=== PATIENT | male | born 1995 | race Caucasian/White ===

== ENCOUNTER 2017-03-07 18:54 | Emergency (ER) | payer OTHER ==
[2017-03-07 19:00] VITALS: BP 137/62; PULSE 94; TEMP 98; BMI 19.3
[2017-03-07] MEDS ORDERED: KETOROLAC TROMETHAMINE 30 MG/1 ML VIAL ONE (19:40)
[2017-03-07] MEDS ORDERED: KETOROLAC TROMETHAMINE 30 MG/1 ML VIAL IM PRN (19:46)
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
== END 2017-03-07 20:30 | disposition home or self-care (01) ==
LOC: JERFT 18:54
PROC: 3E0233Z Introduction of Anti-inflammatory into Muscle, Percutaneous Approach (ICD-10-PCS; principal; 2017-03-07)
DX: M54.5 Low back pain (principal); W21.9XXA Striking against or struck by unspecified sports equipment, initial encounter; Y93.67 Activity, basketball; Y92.310 Basketball court as the place of occurrence of the external cause
CPT/HCPCS: 96372; 99281-25

== ENCOUNTER 2017-06-21 18:00 | Emergency (ER) | payer OTHER ==
[2017-06-21 18:04] VITALS: BP 120/64; PULSE 76; TEMP 98.9; BMI 20.9
[2017-06-21] MEDS ORDERED: SODIUM CHLORIDE 1,000 ML IV STA (19:28)
--- NOTE | 2017-06-21 19:36 | PDOC ---
History of Present Illness - General Chief Complaint: Nausea/Vomiting Stated Complaint: VOMITING Time Seen by Provider: 06/21/17 19:09 History Source: Patient - History of Present Illness Initial Comments: 06/21/17 19:30 21M with no pmh presents to the ED with after 4 episodes of vomiting since last night and throughout today. Patient states that he usually doesn't drink but last night indulged himself with 4 beers, 1 FourLoko and 1 beverage of rum after which the first episode of vomiting started. At first he vomited liquid but then his vomitus consisted of bile and some blood. He currently complains of abdominal residual pain and also an episode of diarrhea. No headaches, chest pain, sob, dysuria, Past History - Past Medical History Allergies/Adverse Reactions: Allergies Allergy/AdvReac Type Severity Reaction Status Date / Time No Known Allergies Allergy Verified 06/21/17 18:02 Home Medications: Ambulatory Orders NK [No Known Home Medication] 06/21/17 Suicide Attempt (Hx): No - Immunization History Immunization Up to Date: Yes - Psycho/Social/Smoking Cessation Hx Anxiety: No Suicidal Ideation: No Smoking History: Never smoked Have you smoked in the past 12 months: No Information on smoking cessation initiated: No 'Breaking Loose' booklet given: 05/10/15 Hx Alcohol Use: Yes Drug/Substance Use Hx: No Substance Use Type: Alcohol, Marijuana Hx Substance Use Treatment: No Review of Systems - Review of Systems Constitutional: No: Symptoms Reported HEENTM: No: Symptoms Reported Respiratory: No: Symptoms reported Cardiac (ROS): No: Symptoms Reported ABD/GI: Yes: See HPI : No: Symptoms Reported Musculoskeletal: No: Symptoms Reported Integumentary: No: Symptoms Reported Neurological: No: Symptoms reported *Physical Exam - Vital Signs Last Vital Signs Temp Pulse Resp BP Pulse Ox 98.9 F 76 18 120/64 100 06/21/17 18:02 06/21/17 18:02 06/21/17 18:02 06/21/17 18:02 06/21/17 18:02 - Physical Exam General Appearance: Yes: Nourished, Appropriately Dressed. No: Apparent Distress HEENT: positive: EOMI, DAVID Neck: positive: Trachea midline. negative: Tender Respiratory/Chest: positive: Lungs Clear, Normal Breath Sounds. negative: Chest Tender Cardiovascular: positive: Regular Rhythm, Regular Rate, S1, S2 Gastrointestinal/Abdominal: positive: Normal Bowel Sounds, Flat, Soft. negative : Tender (mild discomfort on palpation), Distended, Guarding, Rebound ED Treatment Course - LABORATORY CBC & Chemistry Diagram: 06/21/17 17:40 06/21/17 17:40 Medical Decision Making - Medical Decision Making 06/21/17 19:38 21M presents to the ED after 4 episodes of vomiting due to alcohol poisoning last night. CBC CMP lipase, urinalysis and tox screen negative Tx with fluids.\, zofran, protonix. D/C 06/21/17 22:44 06/21/17 22:44 *DC/Admit/Observation/Transfer Diagnosis at time of Disposition: Nausea, Vomiting, Toxic effect of ethyl alcohol - Discharge Dispostion Disposition: HOME Condition at time of disposition: Improved - Patient Instructions Printed Discharge Instructions: What Every Parent Should Know About College Binge Drinking Additional Instructions: drink plenty of fluids. Return if any problems. Print Language: UKRAINIAN
[2017-06-21] MEDS ORDERED: PANTOPRAZOLE SODIUM 40 MG in SODIUM CHLORIDE 100 ML IVPB ONE (19:42)
[2017-06-21] MEDS ORDERED: ONDANSETRON 4 MG/2 ML VIAL IVPB ONE (19:42)
[2017-06-21] MEDS ORDERED: PANTOPRAZOLE SODIUM 100 ML IVPB ONE (19:43)
[2017-06-21] MEDS ORDERED: ONDANSETRON 4 MG/2 ML VIAL ONE (19:43)
--- NOTE | 2017-06-21 19:48 | PDOC ---
Attending Attestation - HPI HPI: The patient is a 21 yo M with no significant past medical history who presents with four episodes of vomiting since last night. The patient states he drank 4 beers, 1 Fourloko and one rum beverage last night and has been vomiting ever since. The patient states his vomit was originally the color of the alcohol but now consists of some bile and blood. The patient also endorses mild diffuse abdominal pain and one episode of diarrhea. The patient denies fevers and chills. The patient denies chest pain, palpitations and lightheadedness. PCP: Dr. Desai - Physicial Exam PE: GENERAL: Well-appearing, well-nourished. No apparent distress. HEENT: Normocephalic, atraumatic. PERRL, EOM intact. CARDIOVASCULAR: Normal S1, S2. Regular rate and rhythm. PULMONARY: Clear to auscultation bilaterally. ABDOMEN: Soft, non-distended, non-tender. EXTREMITIES: Normal ROM in all four extremities. No gross deformities. SKIN: Warm, dry. No rash NEUROLOGICAL: No focal neurological deficits. - Medical Decision Making Documentation prepared by Kaitlyn Riggins, acting as medical director occupational health for Boston Erickson MD/DO. <Kaitlyn Riggins - Last Filed: 06/21/17 20:07> - Resident Resident Name: David Loaiza - ED Attending Attestation I have performed the following: I have examined & evaluated the patient, The case was reviewed & discussed with the resident, I agree w/resident's findings & plan, Exceptions are as noted - Physicial Exam PE: 06/21/17 22:26 *Physical Exam General Appearance: Yes: Appropriately Dressed. No: Apparent Distress, Intoxicated HEENT: positive: EOMI, DAVID, Normal ENT Inspection, Normal Voice, TMs Normal, Pharynx Normal. negative: Pale Conjunctivae, Photophobia, Scleral Icterus (R), Scleral Icterus (L) Neck: positive: Trachea midline, Normal Thyroid, Supple. negative: Tender, Rigid, Carotid bruit, Stridor, Lymphadenopathy (R), Lymphadenopathy (L), Thyromegaly Respiratory/Chest: positive: Lungs Clear, Normal Breath Sounds. negative: Chest Tender, Respiratory Distress, Accessory Muscle Use, Labored Respiration, RES, Crackles, Rales, Rhonchi, Stridor, Wheezing, Dullness Cardiovascular: positive: Regular Rhythm, Regular Rate, S1, S2. negative: Edema , JVD, Murmur, Bradycardia, Tachycardia Vascular Pulses: Dorsalis-Pedis (R): 2+, Doralis-Pedis (L): 2+ Gastrointestinal/Abdominal: positive: Normal Bowel Sounds, Flat, Soft. negative : Tender, Organomegaly, Pulsatile Mass, Increased Bowel Sounds, Decreased BS, Distended, Guarding, Rebound, Hernia, Hepatomegaly, Spleenomegaly Lymphatic: negative: Adenopathy, Tenderness Musculoskeletal: positive: Normal Inspection. negative: CVA Tenderness, Decreased Range of Motion Extremity: positive: Normal Capillary Refill, Normal Inspection, Normal Range of Motion, Pelvis Stable. negative: Tender, Pedal Edema, Swelling, Erythema Integumentary: positive: Normal Color, Dry, Warm. negative: Cyanotic, Erythema , Jaundice, Rash Neurologic: positive: boarding specialist II-XII NML intact, Fully Oriented, Alert, Normal Mood/ Affect, Motor Strength 5/5. negative: EOM Palsy, Facial Droop, Sensory Deficit - Medical Decision Making 06/21/17 22:26 labs and IV fluids. Patient feels better. Labs stable. Patient to discharge. <Boston Erickson - Last Filed: 06/21/17 22:35> Discharge Disposition <Kaitlyn Riggins - Last Filed: 06/21/17 20:07> - Discharge Dispostion Admit: No <Boston Erickson - Last Filed: 06/21/17 22:35> - Diagnosis Nausea, Vomiting - Discharge Dispostion Disposition: HOME Condition at time of disposition: Stable - Patient Instructions Printed Discharge Instructions: DI for Nausea -- Adult, DI for Vomiting -- Adult Additional Instructions: drink plenty of fluids. Return if any problems.
[2017-06-21 20:17] LABS: BASOPHIL 0.3 % (0-2.0); EOSINOPHIL 0.1 % (0-4.5); MCH 26.6 pg (25.7-33.7); MCHC 32.8 g/dl (32.0-35.9); MEAN CELL VOLUME 81.2 fl (80-96); MEAN PLT VOLUME 9.1 fl (7.5-11.1); NEUTROPHILS 83.7 % (42.8-82.8); PLATELET COUNT 243 K/MM3 (134-434); RDW 13.7 % (11.9-15.9); WHITE BLOOD COUNT 10.1 K/mm3 (4.0-10.0)
[2017-06-21 20:43] LABS: URINE APPEARANCE CLEAR; URINE BILIRUBIN NEGATIVE (NEGATIVE); URINE BLOOD NEGATIVE (NEGATIVE); URINE COLOR YELLOW; URINE GLUCOSE (UA) NEGATIVE (NEGATIVE); URINE KETONE 2+ (NEGATIVE); URINE LEUK ESTERASE NEGATIVE (NEGATIVE); URINE NITRITE NEGATIVE (NEGATIVE); URINE PROTEIN 1+ (NEGATIVE)
[2017-06-21 20:51] LABS: URINE MUCUS MANY; URINE RBC 1 /hpf (0-3); URINE WBC 2 /hpf (3-5)
[2017-06-21 21:19] LABS: URINE MARIJUANA THC POSITIVE ng/ml (CUTOFF=50)
[2017-06-21 23:07] LABS: ALBUMIN 4.5 g/dl (3.4-5.0); ANION GAP 9 (8-16); BILIRUBIN,TOTAL 0.7 mg/dL (0.2-1.0); CALCIUM 9.6 mg/dL (8.5-10.1); CO2 28 mmol/L (21-32); CREATININE 0.7 mg/dL (0.7-1.3); GLUCOSE,RANDOM 84 mg/dL (74-106); SGOT/AST 36 U/L (15-37); SGPT/ALT 59 U/L (12-78); TOT PROT 7.9 g/dl (6.4-8.2)
[2017-06-21 23:08] LABS: ALK PHOS 92 U/L (45-117)
== END 2017-06-21 22:35 | disposition home or self-care (01) ==
LOC: JER 18:00
PROC: 3E033GC Introduction of Other Therapeutic Substance into Peripheral Vein, Percutaneous Approach (ICD-10-PCS; principal; 2017-06-21)
PROC: 3E0337Z Introduction of Electrolytic and Water Balance Substance into Peripheral Vein, Percutaneous Approach (ICD-10-PCS; 2017-06-21)
DX: T51.91XA Toxic effect of unspecified alcohol, accidental (unintentional), initial encounter (principal); R11.2 Nausea with vomiting, unspecified
CPT/HCPCS: 36415; 80053; 80307; 81003; 81015; 83690; 85025; 99282-25

== ENCOUNTER 2017-12-25 23:07 | Emergency (ER) | payer OTHER ==
[2017-12-26 00:05] VITALS: BP 136/90; PULSE 90; TEMP 98.2; BMI 22.9
--- NOTE | 2017-12-26 01:40 | PDOC ---
Attending Attestation - Resident Resident Name: Aleksandr Anne - ED Attending Attestation I have performed the following: I have examined & evaluated the patient, The case was reviewed & discussed with the resident, I agree w/resident's findings & plan, Exceptions are as noted
[2017-12-26] MEDS ORDERED: IBUPROFEN 600 MG TABLET (FP) PO ONE ×2 (02:13→02:31)
[2017-12-26] MEDS ORDERED: ALBUTEROL SO4 2.5/IPRATROPIUM 0.5 INH SOL 3 ML VIAL.NEB. NEB ONE ×2 (02:13→02:31)
--- NOTE | 2017-12-26 02:13 | PDOC ---
History of Present Illness - General Chief Complaint: Cold Symptoms Stated Complaint: COLD SYMPTOMS Time Seen by Provider: 12/26/17 01:39 History Source: Patient - History of Present Illness Initial Comments: 12/26/17 02:50 22 year old male with fever/ chills, cough, chest congestion and throat pain x 2 days. patient + sick contacts , patient was in the ED with girlfriend 4 days ago. Past History - Past Medical History Allergies/Adverse Reactions: Allergies Allergy/AdvReac Type Severity Reaction Status Date / Time No Known Allergies Allergy Verified 12/26/17 00:05 Home Medications: Ambulatory Orders Ibuprofen [Motrin -] 400 mg PO QID PRN #28 tablet 12/26/17 Oseltamivir Phosphate [Tamiflu -] 75 mg PO BID #10 capsule 12/26/17 COPD: No - Immunization History Immunization Up to Date: Yes - Suicide/Smoking/Psychosocial Hx Smoking History: Current some day smoker Have you smoked in the past 12 months: Yes Number of Cigarettes Smoked Daily: 2 Information on smoking cessation initiated: No 'Breaking Loose' booklet given: 12/22/17 Hx Alcohol Use: No Drug/Substance Use Hx: No Substance Use Type: Alcohol, Marijuana Hx Substance Use Treatment: No Respiratory Specific PMHX - Complaint Specific PMHX Bronchitis: Yes *Physical Exam - Vital Signs Last Vital Signs Temp Pulse Resp BP Pulse Ox 98.2 F 90 18 136/90 98 12/26/17 00:01 12/26/17 00:01 12/26/17 00:01 12/26/17 00:01 12/26/17 00:01 - Physical Exam General Appearance: Yes: Appropriately Dressed HEENT: positive: Tonsillar Erythema. negative: EOMI, DAVID, Normal ENT Inspection, Normal Voice, Symmetrical, TMs Normal, Pharynx Normal, Pale Conjunctivae, Photophobia, Scleral Icterus (R), Scleral Icterus (L), Muffled/ Hoarse voice, Pharyngeal Erythema, Tonsillar Exudate, Nasal Congestion, Rhinorrhea, Sinus Tenderness, Orbits, Hearing Decreased, Hearing Grossly Normal , TM Bulging, TM Dull, TM Erythema, Lesions, Syed, Excessive drooling, Thrush, Other Respiratory/Chest: positive: Wheezing (mild expiratory wheezing). negative: Chest Tender, Lungs Clear, Normal Breath Sounds, Respiratory Distress, Accessory Muscle Use, Labored Respiration, Rapid RR, Decreased Breath Sounds, Paradoxal Breathing, Crackles, Rales, Rhonchi, Stridor, Hyperresonant, Dullness , Plerual Rub, Other Cardiovascular: positive: Regular Rhythm, Regular Rate Gastrointestinal/Abdominal: positive: Normal Bowel Sounds, Soft Extremity: positive: Normal Capillary Refill, Normal Inspection, Normal Range of Motion Integumentary: positive: Normal Color, Dry, Warm Neurologic: positive: Fully Oriented, Alert, Normal Mood/Affect Medical Decision Making - Medical Decision Making 12/26/17 02:52 flu test not done due to lack of reagent. will empircally treat for influenza, *DC/Admit/Observation/Transfer Diagnosis at time of Disposition: Viral upper respiratory illness - Discharge Dispostion Disposition: HOME - Prescriptions Prescriptions: Ibuprofen [Motrin -] 400 mg PO QID PRN #28 tablet PRN Reason: Fever Oseltamivir Phosphate [Tamiflu -] 75 mg PO BID #10 capsule - Referrals Referrals: ON STAFF,NOT [Primary Care Provider] - - Patient Instructions Printed Discharge Instructions: DI for Common Cold Additional Instructions: drink plenty of fluids, take tylenol/ ibuprofen every 6 hours as needed for pain/. fever follow up with your doctor as soon as possible. return to the ER if symptoms worsen. - Post Discharge Activity
== END 2017-12-26 03:18 | disposition home or self-care (01) ==
LOC: JERFT 23:07 → JER 23:07
PROC: 3E0F7GC Introduction of Other Therapeutic Substance into Respiratory Tract, Via Natural or Artificial Opening (ICD-10-PCS; principal; 2017-12-25)
DX: J06.9 Acute upper respiratory infection, unspecified (principal); B97.89 Other viral agents as the cause of diseases classified elsewhere; F17.210 Nicotine dependence, cigarettes, uncomplicated
CPT/HCPCS: 87070; 87430; 94640; 99281-25

== ENCOUNTER 2018-10-27 19:37 | Emergency (ER) | payer OTHER ==
[2018-10-27 20:52] VITALS: TEMP 98.5; BMI 24.4
--- NOTE | 2018-10-27 21:19 | PDOC ---
Attending Attestation - HPI HPI: 10/27/18 22:19 The patient is a 23-year-old male with no significant past medical presents to the emergency department with abdominal pain. The patient presents with 3 days of intermittent RUQ pain that was aggravated at around 4:00 pm today, which worsened into a constant dull pain. The patient reports the pain was bearable, until earlier today. The patient reports the pain is aggravated with sitting down and deep breathing. The patient reports associated symptom of SOB, which is secondary to pain with deep breathing. Denies nausea, vomiting, fever, chills , difficulty eating or chest pain. Allergies: NKDA Social history: Alcohol or Marijuana use. PCP: Not on staff. - Physicial Exam PE: 10/27/18 22:19 GENERAL: The patient is in no acute distress. Awake, alert and oriented. Throat: Moist mucous membrane. LUNGS: Breath sounds equal, clear to auscultation bilaterally. No wheezes, and no crackles. HEART:Regular rate and rhythm, normal S1 and S2 without murmur, rub or gallop. ABDOMEN: +severe RUQ tenderness with guarding, no lower abdominal tenderness. no rebound. No masses palpable. - Medical Decision Making 10/27/18 22:19 Documentation prepared by Baylee Gold, acting as medical laboratory technical officer for Mirella Bass MD. <Baylee Gold - Last Filed: 10/27/18 22:19> - Resident Resident Name: FadiaDavid - ED Attending Attestation I have performed the following: I have examined & evaluated the patient, The case was reviewed & discussed with the resident, I agree w/resident's findings & plan, Exceptions are as noted - Medical Decision Making Pt presents with RUQ pain DD: biliary colic, colitis, duodenitis Less likely pneumonia/pleurisy, unlikely PE - PERC negative 10/27/18 23:46 Laboratory Tests 10/27/18 10/27/18 10/27/18 22:25 22:25 22:25 WBC 11.7 H Hgb 13.9 Hct 40.5 Plt Count 298 D Sodium 137 Potassium 4.4 Chloride 105 Carbon Dioxide 30 BUN 12 Creatinine 0.8 AST 33 ALT 46 Lipase 14 L US - no acute pathology 10/27/18 23:51 Pt states pain is severe and unbearable Located in the RUQ 10/28/18 01:01 CT performed and is negative 10/28/18 01:02 Will discharge to home Follow up with PMD Return to the ER for any other concerns or complaints <Mirella Bass - Last Filed: 10/28/18 01:05> *DC/Admit/Observation/Transfer - Discharge Dispostion Decision to Admit order: No <Mirella Bass - Last Filed: 10/28/18 01:05> Diagnosis at time of Disposition: Abdominal pain Qualifiers: Abdominal location: right upper quadrant Qualified Code(s): R10.11 - Right upper quadrant pain - Discharge Dispostion Disposition: HOME Condition at time of disposition: Stable - Patient Instructions Printed Discharge Instructions: DI for Abdominal Pain-Adult Additional Instructions: Mr Hernandez Thank you for coming in to the ER today You can take tylenol 1000 mg three times per day You can also take Motrin 600 mg three times per day You can take these medications in alternation Please follow up with your Primary Care physician Return to the ER for any other concerns or complaints
--- NOTE | 2018-10-27 21:26 | PDOC ---
History of Present Illness - General Chief Complaint: Pain Stated Complaint: PAIN ON UPPER RIGHT RIBS Time Seen by Provider: 10/27/18 20:54 History Source: Patient Exam Limitations: No Limitations - History of Present Illness Initial Comments: 10/27/18 21:25 23m with no pmh presents to the ED for URQ abdominal pain for the past 3 days. The pain in constant, increasing in intensity with episodes of exacerbation. Those episodes are seemingly random, not exacerbated by food or movement. Patient denies drinking. Denies headache, fever, n/v/d or constipation. Last BM was this morning. Past History - Past Medical History Allergies/Adverse Reactions: Allergies Allergy/AdvReac Type Severity Reaction Status Date / Time No Known Allergies Allergy Verified 10/27/18 20:50 Home Medications: Ambulatory Orders Polyethylene Glycol 3350 [Miralax (For Bowel Prep) -] 255 gm PO DAILY #1 btl COPD: No - Immunization History Immunization Up to Date: Yes - Suicide/Smoking/Psychosocial Hx Smoking History: Never smoked Have you smoked in the past 12 months: No Number of Cigarettes Smoked Daily: 2 Information on smoking cessation initiated: No 'Breaking Loose' booklet given: 12/22/17 Hx Alcohol Use: No Drug/Substance Use Hx: No Substance Use Type: Alcohol, Marijuana Hx Substance Use Treatment: No Review of Systems - Review of Systems Able to Perform ROS?: Yes Is the patient limited Serbian proficient: No Constitutional: No: Symptoms Reported HEENTM: No: Symptoms Reported Respiratory: No: Symptoms reported Cardiac (ROS): No: Symptoms Reported ABD/GI: Yes: See HPI : No: Symptoms Reported Musculoskeletal: No: Symptoms Reported Integumentary: No: Symptoms Reported All Other Systems: Reviewed and Negative *Physical Exam - Vital Signs Last Vital Signs Temp Pulse Resp BP Pulse Ox 98.5 F 87 18 119/72 97 10/27/18 20:45 10/27/18 20:45 10/27/18 20:45 10/27/18 20:45 10/27/18 20:45 - Physical Exam General Appearance: Yes: Nourished, Appropriately Dressed. No: Apparent Distress HEENT: positive: EOMI, DAVID, Normal ENT Inspection Respiratory/Chest: positive: Lungs Clear, Normal Breath Sounds. negative: Chest Tender, Respiratory Distress Cardiovascular: positive: Regular Rhythm, Regular Rate, S1, S2 Gastrointestinal/Abdominal: positive: Normal Bowel Sounds, Tender (URQ tenderness, no rebound, no guarding, positive adler's), Flat, Soft Musculoskeletal: positive: Normal Inspection. negative: CVA Tenderness Extremity: positive: Normal Capillary Refill Integumentary: positive: Normal Color, Dry, Warm Neurologic: positive: Fully Oriented, Alert, Normal Mood/Affect, Normal Response , Motor Strength 5/5 Moderate Sedation - Procedure Monitoring Vital Signs: Procedure Monitoring Vital Signs Temperature 98.5 F 10/27/18 20:45 Pulse Rate 87 10/27/18 20:45 Respiratory Rate 18 10/27/18 20:45 Blood Pressure 119/72 10/27/18 20:45 O2 Sat by Pulse Oximetry (%) 97 10/27/18 20:45 ED Treatment Course - LABORATORY CBC & Chemistry Diagram: 10/27/18 22:25 10/27/18 22:25 - RADIOLOGY Radiology Studies Ordered: Category Date Time Status GALLBLADDER US [US] Stat Ultrasound 10/27/18 21:21 Ordered Medical Decision Making - Medical Decision Making 10/27/18 21:52 23m with no pmh and urq abdominal pain, positive adler's. POCUS gallbladder performed. No stones appreciated, some sludge. Will do official US. Gallstones vs pancreatitis vs appendicitis vs dyspepsia Will obtain lipase, wbc, official us pending., 10/28/18 01:03 US negative, all labs negative, CT abd and pelvis negative except for stool. will dc with miralax *DC/Admit/Observation/Transfer Diagnosis at time of Disposition: Constipation - Discharge Dispostion Disposition: HOME Condition at time of disposition: Stable Decision to Admit order: No - Referrals - Patient Instructions Printed Discharge Instructions: Increased Dietary Fiber May Improve Constipation Conditions With Pelvic Dwayne, DI for Constipation Additional Instructions: Come back to the ER for any new, worsening or concerning symptoms. - Post Discharge Activity
[2018-10-27] MEDS ORDERED: ACETAMINOPHEN 1000 MG/100 ML VIAL (NON FORMULARY) IVPB ONE (21:37)
[2018-10-27] MEDS ORDERED: SODIUM CHLORIDE 1,000 ML IV STA (21:37)
[2018-10-27] MEDS ORDERED: ACETAMINOPHEN INJECTION 100 ML IVPB ONE (22:17)
[2018-10-27 22:31] LABS: BASO % 0.3 % (0-2.0); EOS % 2.9 % (0-4.5); HEMATOCRIT 40.5 % (35.4-49); HEMOGLOBIN 13.9 GM/dL (11.7-16.9); LYMPH % 17.6 % (8-40); MCH 27.4 pg (25.7-33.7); MCHC 34.2 g/dl (32.0-35.9); MEAN CELL VOLUME 80.1 fl (80-96); MEAN PLT VOLUME 8.9 fl (7.5-11.1); MONO % 8.2 % (3.8-10.2); PLATELET COUNT 298 K/MM3 (134-434); RBC 5.05 M/mm3 (4.00-5.60); RDW 13.3 % (11.9-15.9); WHITE BLOOD COUNT 11.7 K/mm3 (4.0-10.0)
[2018-10-27 23:01] LABS: ALBUMIN 4.1 g/dl (3.4-5.0); ALK PHOS 89 U/L (45-117); ANION GAP 3 MMOL/L (8-16); BILIRUBIN,TOTAL 0.5 mg/dL (0.2-1); BLOOD UREA NITROGEN 12 mg/dL (7-18); CALCIUM 8.7 mg/dL (8.5-10.1); CHLORIDE 105 mmol/L (98-107); CO2 30 mmol/L (21-32); CREATININE 0.8 mg/dL (0.55-1.3); GLUCOSE,RANDOM 89 mg/dL (74-106); POTASSIUM 4.4 mmol/L (3.5-5.1); SGOT/AST 33 U/L (15-37); SGPT/ALT 46 U/L (13-61); SODIUM 137 mmol/L (136-145); TOT PROT 7.3 g/dl (6.4-8.2)
[2018-10-28 01:17] VITALS: BP 115/74; PULSE 85
--- NOTE | 2018-10-28 12:11 | EKG ---
Test Reason : Blood Pressure : / mmHG Vent. Rate : 075 BPM Atrial Rate : 075 BPM P-R Int : 130 ms QRS Dur : 090 ms QT Int : 396 ms P-R-T Axes : 033 039 014 degrees QTc Int : 442 ms NORMAL SINUS RHYTHM NONSPECIFIC ST ABNORMALITY ABNORMAL ECG NO PREVIOUS ECGS AVAILABLE Confirmed by JORDYN ALMARAZ MD ([id number]) on 10/28/2018 12:11:17 PM Referred By: Confirmed By:JORDYN ALMARAZ MD
--- NOTE | 2018-10-28 15:57 | PDOC ---
Patient Follow-up (Call Back) - Post ED Follow - Up Chief Complaint: Pain Condition at time of discharge: Stable Disposition at time of original discharge: HOME Reason for Call Back: Radiology (free fluid in pelvis) Signs/Symptoms Improved: No (pt continues to have pain ) - Disposition Additional Instructions/Notes: spoke to brother who was translating on the phone with patient on the call as well, pt inst to return to ER as pt is still having pain.
== END 2018-10-28 01:20 | disposition home or self-care (01) ==
LOC: JER 19:37
PROC: 3E033NZ Introduction of Analgesics, Hypnotics, Sedatives into Peripheral Vein, Percutaneous Approach (ICD-10-PCS; principal; 2018-10-27)
PROC: 3E0337Z Introduction of Electrolytic and Water Balance Substance into Peripheral Vein, Percutaneous Approach (ICD-10-PCS; 2018-10-27)
DX: R10.11 Right upper quadrant pain (principal)
CPT/HCPCS: 36415; 74177-TC; 76705-TC; 80053; 83690; 85025; 93005; 93010; 99283-25; J0131; J7030

== ENCOUNTER 2019-02-19 21:25 | Emergency (ER) | payer OTHER ==
--- NOTE | 2019-02-19 21:47 | PDOC ---
Rapid Medical Evaluation Time Seen by Provider: 02/19/19 21:46 Medical Evaluation: Allergies Allergy/AdvReac Type Severity Reaction Status Date / Time No Known Allergies Allergy Verified 10/27/18 20:50 02/19/19 21:46 I have performed a brief in-person evaluation of this patient. The patient presents with a chief complaint of: b/l hand pain Pertinent physical exam findings: scaly rash present to b/l hands I have ordered the following: nothing The patient will proceed to the ED for further evaluation. Discharge Disposition - Diagnosis Contact dermatitis - Referrals - Patient Instructions - Post Discharge Activity
[2019-02-19 21:54] VITALS: BP 103/75; PULSE 84; TEMP 98.4; BMI 24.3
--- NOTE | 2019-02-19 22:19 | PDOC ---
History of Present Illness - General Chief Complaint: Allergic Reaction Stated Complaint: Allergic Reaction Time Seen by Provider: 02/19/19 21:46 - History of Present Illness Initial Comments: 02/19/19 22:17 23-year-old male without comorbidities presents for evaluation of a rash on bilateral hands after using latex gloves. He states the rash is been there for 2 weeks recently increasing over the last 3 days. Past History - Past Medical History Allergies/Adverse Reactions: Allergies Allergy/AdvReac Type Severity Reaction Status Date / Time No Known Allergies Allergy Verified 02/19/19 21:52 Home Medications: Ambulatory Orders Mometasone Furoate [Elocon] 45 gm TP BID #1 oint...g. 02/19/19 COPD: No - Immunization History Immunization Up to Date: Yes - Suicide/Smoking/Psychosocial Hx Smoking History: Current every day smoker Have you smoked in the past 12 months: Yes Number of Cigarettes Smoked Daily: 7 Information on smoking cessation initiated: No 'Breaking Loose' booklet given: 12/22/17 Hx Alcohol Use: No Drug/Substance Use Hx: No Substance Use Type: Alcohol, Marijuana Hx Substance Use Treatment: No Review of Systems - Review of Systems Constitutional: No: Fever Integumentary: Yes: Pruritus, Rash *Physical Exam - Vital Signs Last Vital Signs Temp Pulse Resp BP Pulse Ox 98.4 F 84 18 103/75 100 02/19/19 21:50 02/19/19 21:50 02/19/19 21:50 02/19/19 21:50 02/19/19 21:50 - Physical Exam Comments: 02/19/19 22:17 There is a scaly mildly erythematous rash on the dorsum of the hands and fingers and proximal aspect of the palm which stops at the line of a glove. There are mild excoriations on the dorsum of the hand without indication of secondary infection. Medical Decision Making - Medical Decision Making 02/19/19 22:18 I will prescribe topical steroidal cream and dermatology follow-up for contact dermatitis *DC/Admit/Observation/Transfer Diagnosis at time of Disposition: Contact dermatitis - Discharge Dispostion Disposition: HOME Condition at time of disposition: Stable Decision to Admit order: No - Prescriptions Prescriptions: Mometasone Furoate [Elocon] 45 gm TP BID #1 oint...g. - Referrals Referrals: Jania Saenz MD [Staff Physician] - - Patient Instructions Printed Discharge Instructions: DI for Contact Dermatitis, Contact Dermatitis Additional Instructions: Return to the emergency room for worsening symptoms. Please use a steroid cream as directed and follow-up with dermatology without fail in the next 1-2 days for further evaluation and treatment options. - Post Discharge Activity
== END 2019-02-19 22:21 | disposition home or self-care (01) ==
LOC: JERFT 21:25
DX: L23.89 Allergic contact dermatitis due to other agents (principal)
CPT/HCPCS: 99281-25

== ENCOUNTER 2019-03-22 00:54 | Emergency (ER) | payer OTHER ==
[2019-03-22 01:05] VITALS: BP 121/81; PULSE 87; TEMP 98.7; BMI 22.9
--- NOTE | 2019-03-22 01:40 | PDOC ---
History of Present Illness - General Chief Complaint: Allergic Reaction Stated Complaint: RASH BOTH HANDS Time Seen by Provider: 03/22/19 01:16 History Source: Patient, Old Records Exam Limitations: No Limitations - History of Present Illness Initial Comments: 03/22/19 01:40 HISTORY OF PRESENT ILLNESS: 23-year-old male presents emergency department for reevaluation of rash to the dorsum of bilateral hands which has been present for the past 2 weeks. Patient was seen and evaluated approximately 1 month ago for similar complaint after using latex gloves. Patient has avoided latex gloves but when he ran out of steroid cream noted that the rash returns. Patient tried to scheduled appointment with the room attendant with the room attendant did not take his insurance so therefore was unable to secure an appointment. Patient is here requesting a refill of his steroid cream intake and be evaluated by his private doctor in appointment next week. No recent travel or sick contacts. PAST MEDICAL HISTORY: Denies past medical history SURGICAL HISTORY: Denies ALLERGIES: No known drug allergies REVIEW OF SYSTEMS General/Constitutional: Denies fever or chills. Denies weakness, weight change. HEENT: Denies change in vision. Denies ear pain or discharge. Denies sore throat. Cardiovascular: Denies chest pain or shortness of breath. Respiratory: Denies cough, wheezing, or hemoptysis. Gastrointestinal: Denies nausea, vomiting, diarrhea or constipation. Denies rectal bleeding. Genitourinary: Denies dysuria, frequency, or change in urination. Musculoskeletal: Denies joint or muscle swelling or pain. Denies neck or back pain. Skin and breasts: see HPI Neurologic: Denies headache, vertigo, loss of consciousness, or loss of sensation. Psychiatric: Denies depression or anxiety. Endocrine: Denies increased thirst. Denies abnormal weight change. Hematologic/Lymphatic: Denies anemia, easy bleeding, or history of blood clots. Allergic/Immunologic: Denies hives or skin allergy. Denies latex allergy. PHYSICAL EXAM General Appearance: Well-appearing, appropriately dressed. No apparent distress , no intoxication. Respiratory/Chest: Lungs CTAB. No shortness of breath, chest tenderness, respiratory distress, accessory muscle use. No crackles, rales, rhonchi, stridor , wheezing, dullness Cardiovascular: RRR. S1, S2. No JVD, murmur, bradycardia, tachycardia. Vascular Pulses: Dorsalis-Pedis (R): 2+, Dorsalis-Pedis (L): 2+ Musculoskeletal/Extremities: Normal inspection. FROM of all extremities, normal capillary refill. Pelvis Stable. No CVA tenderness. No tenderness to extremities, pedal edema, swelling, erythema or deformity. Integumentary: Scaly erythematous rash the dorsum of bilateral hands and fingers on the for aspect of the left palm excoriations presents throughout the rash without any signs and symptoms of infection. 03/22/19 01:43 Past History - Past Medical History Allergies/Adverse Reactions: Allergies Allergy/AdvReac Type Severity Reaction Status Date / Time No Known Allergies Allergy Verified 03/22/19 01:39 Home Medications: Ambulatory Orders Acetaminophen [Tylenol] 650 mg PO PRN 03/22/19 Mometasone Furoate [Elocon] 45 gm TP BID #1 oint...g. 03/22/19 COPD: No - Immunization History Immunization Up to Date: Yes - Suicide/Smoking/Psychosocial Hx Smoking History: Unknown if ever smoked Have you smoked in the past 12 months: No Number of Cigarettes Smoked Daily: 2 'Breaking Loose' booklet given: 12/22/17 Hx Alcohol Use: No Drug/Substance Use Hx: No Substance Use Type: Alcohol, Marijuana Hx Substance Use Treatment: No *Physical Exam - Vital Signs Last Vital Signs Temp Pulse Resp BP Pulse Ox 98.7 F 87 20 121/81 99 03/22/19 00:59 03/22/19 00:59 03/22/19 00:59 03/22/19 00:59 03/22/19 00:59 Medical Decision Making - Medical Decision Making 03/22/19 01:43 A/P: 23-year-old male with contact dermatitis to the dorsum of bilateral hands volar aspect of right wrist Scaly erythematous rash with excoriations throughout presents to the dorsum of bilateral hands and volar aspect of right wrist. No signs and symptoms of infection presents to the excoriated areas. I'll discharge the patient home with prescription for mometasone a referral for ENT specialist for ALLERGY testing. *DC/Admit/Observation/Transfer Diagnosis at time of Disposition: Contact dermatitis Qualifiers: Contact dermatitis type: unspecified Contact dermatitis trigger: unspecified trigger Qualified Code(s): L25.9 - Unspecified contact dermatitis, unspecified cause - Discharge Dispostion Disposition: HOME Condition at time of disposition: Stable Decision to Admit order: No - Prescriptions Prescriptions: Mometasone Furoate [Elocon] 45 gm TP BID #1 oint...g. - Referrals Referrals: Blas Berman MD [Primary Care Provider] - Avinash Hitchcock MD [Staff Physician] - - Patient Instructions Additional Instructions: Rest, keep cool and dry- avoid strenuous activity or hot /humid environments Less hot showers, no abrasive soaps May use heavy creams like Eucerin or Cetaphil to keep skin moist May apply Aveeno, calamine lotion, [id number] hydrocortisone creams as needed for symptoms May use Benadryl at night for antihistamine, Zyrtec/ Lizabeth or Claritin for daytime antihistamine use to help with itching Use mometasone cream on all areas except face Try to identify cause for rash and avoid exposures Followup with PMD in one week if no resolution Make appointment with room attendant for evaluation when possible - Post Discharge Activity
--- NOTE | 2019-03-22 01:44 | PDOC ---
*Physical Exam - Vital Signs Last Vital Signs Temp Pulse Resp BP Pulse Ox 98.7 F 87 20 121/81 99 03/22/19 00:59 03/22/19 00:59 03/22/19 00:59 03/22/19 00:59 03/22/19 00:59 Medical Decision Making - Medical Decision Making 03/22/19 01:44 Case discussed with LANI Starr Agree with assessment and plan *DC/Admit/Observation/Transfer Diagnosis at time of Disposition: Contact dermatitis Qualifiers: Contact dermatitis type: unspecified Contact dermatitis trigger: unspecified trigger Qualified Code(s): L25.9 - Unspecified contact dermatitis, unspecified cause - Discharge Dispostion Disposition: HOME Condition at time of disposition: Stable - Prescriptions Prescriptions: Mometasone Furoate [Elocon] 45 gm TP BID #1 oint...g. - Referrals Referrals: Blas Berman MD [Primary Care Provider] - Avinash Hitchcock MD [Staff Physician] - - Patient Instructions Additional Instructions: Rest, keep cool and dry- avoid strenuous activity or hot /humid environments Less hot showers, no abrasive soaps May use heavy creams like Eucerin or Cetaphil to keep skin moist May apply Aveeno, calamine lotion, [id number] hydrocortisone creams as needed for symptoms May use Benadryl at night for antihistamine, Zyrtec/ Lizabeth or Claritin for daytime antihistamine use to help with itching Use mometasone cream on all areas except face Try to identify cause for rash and avoid exposures Followup with PMD in one week if no resolution Make appointment with washing machine installer for evaluation when possible - Post Discharge Activity
== END 2019-03-22 01:44 | disposition home or self-care (01) ==
LOC: JER 00:54
DX: L25.9 Unspecified contact dermatitis, unspecified cause (principal)
CPT/HCPCS: 99282-25

== ENCOUNTER 2021-05-03 22:40 | Emergency (ER) | payer OTHER ==
[2021-05-03 22:57] VITALS: BP 114/75; PULSE 87; TEMP 98.7; BMI 24.5
[2021-05-04] MEDS ORDERED: IBUPROFEN 600 MG TABLET (FP) PO ONE ×2 (01:14→01:34)
== END 2021-05-04 02:24 | disposition home or self-care (01) ==
LOC: JER 22:40
DX: M94.0 Chondrocostal junction syndrome [Tietze] (principal)
CPT/HCPCS: 71046-TC-FY; 93005; 93010; 99284-25

== ENCOUNTER 2022-01-03 20:25 | Emergency (ER) | payer OTHER ==
[2022-01-03 20:34] VITALS: BP 123/75; PULSE 68; TEMP 99.1; BMI 24.3
[2022-01-03 22:00] LABS: BASO % 0.5 % (0-2.0); EOS % 2.5 % (0-4.5); HEMATOCRIT 39.8 % (35.4-49); HEMOGLOBIN 13.2 GM/dL (11.7-16.9); LYMPH % 39.5 % (8-40); MCH 26.1 pg (25.7-33.7); MCHC 33.1 g/dl (32.0-35.9); MONO % 6.6 % (3.8-10.2); NEUT % 50.9 % (42.8-82.8); PLATELET COUNT 240 10^3/uL (134-434); RBC 5.04 M/mm3 (4.00-5.60); RDW 14.2 % (11.9-15.9); WHITE BLOOD COUNT 5.6 K/mm3 (4.0-10.0)
[2022-01-03 22:18] LABS: CALCIUM 8.7 mg/dL (8.5-10.1)
[2022-01-03 22:21] LABS: CREATININE 0.8 mg/dL (0.55-1.3)
[2022-01-03 22:23] LABS: BILIRUBIN,TOTAL 0.8 mg/dL (0.2-1); TOT PROT 7.3 g/dl (6.4-8.2)
[2022-01-03] MEDS ORDERED: FAMOTIDINE 20 MG/50 ML IVPB 20 MG/50 ML MG IVPB ONE ×2 (22:42→23:30)
[2022-01-04 00:23] LABS: PH,URINE 5.5 (5.0-8.0); URINE APPEARANCE CLEAR; URINE BILIRUBIN NEGATIVE (NEGATIVE); URINE COLOR YELLOW; URINE GLUCOSE (UA) NEGATIVE (NEGATIVE); URINE KETONE NEGATIVE (NEGATIVE); URINE LEUK ESTERASE NEGATIVE (NEGATIVE); URINE NITRITE NEGATIVE (NEGATIVE); URINE PROTEIN NEGATIVE (NEGATIVE); URINE UROBILINOGEN 0.2 mg/dL (0.2-1.0)
== END 2022-01-04 00:17 | disposition home or self-care (01) ==
LOC: JER 20:25
PROC: 3E033GC Introduction of Other Therapeutic Substance into Peripheral Vein, Percutaneous Approach (ICD-10-PCS; principal; 2022-01-03)
DX: K51.90 Ulcerative colitis, unspecified, without complications (principal); R10.31 Right lower quadrant pain
CPT/HCPCS: 36415; 74177-TC; 80053; 81003; 85025; 87086; 87491; 87591; 96374; 99285-25

== ENCOUNTER 2022-02-03 14:54 | Inpatient (IN) | payer OTHER ==
[2022-02-03] MEDS ORDERED: MAGNESIUM CITRATE 300 ML BOTTLE PO PRN (19:41)
[2022-02-03] MEDS ORDERED: ACETAMINOPHEN 325 MG TABLET (FP) PO PRN ×2 (19:41)
[2022-02-03] MEDS ORDERED: LOPERAMIDE HCL 2 MG CAPSULE PO PRN (19:41)
[2022-02-03] MEDS ORDERED: BISMUTH SUBSALICYLATE 524 MG/30 ML PO PRN (19:41)
[2022-02-03] MEDS ORDERED: MAGNESIUM HYDROX 2400MG/30ML ORAL SUSPENSION 30 ML CUP PO PRN (19:41)
[2022-02-03] MEDS ORDERED: MENTHOL/PHENOL 1 EACH UD MM PRN (19:41)
[2022-02-03] MEDS ORDERED: IBUPROFEN 400 MG TABLET (FP) PO PRN (19:41)
[2022-02-03] MEDS ORDERED: MAG HYDROX/AL HYDROX/SIMETH 30 ML UNIT-DOSE CUP PO PRN (19:41)
[2022-02-03] MEDS ORDERED: ONDANSETRON *ODT* 4 MG TABLET SL PRN (19:41)
[2022-02-03 21:21] VITALS: BMI 23.4
[2022-02-03] MEDS: hydrOXYzine PAMOATE 25 MG CAPSULE (FP) PO SCH (23:08)
[2022-02-03] MEDS: MELATONIN 5 MG TABLETS PO SCH (23:09)
[2022-02-03] MEDS: THIAMINE HCL 100 MG TABLET (FP) PO SCH (23:09)
[2022-02-03] MEDS: PRENATAL VITAMINS W/ FOLIC ACID TABLET (FP) PO SCH (23:36)
[2022-02-04] MEDS: hydrOXYzine PAMOATE 25 MG CAPSULE (FP) PO SCH ×5 (07:30→23:48)
[2022-02-04] MEDS: PRENATAL VITAMINS W/ FOLIC ACID TABLET (FP) PO SCH (10:17)
[2022-02-04 12:10] LABS: HEMATOCRIT 38.4 % (35.4-49); HEMOGLOBIN 12.6 GM/dL (11.7-16.9); MCH 26.4 pg (25.7-33.7); MCHC 32.8 g/dl (32.0-35.9); MEAN CELL VOLUME 80.3 fl (80-96); MEAN PLT VOLUME 8.4 fl (7.5-11.1); PLATELET COUNT 205 10^3/uL (134-434); RBC 4.79 M/mm3 (4.00-5.60); RDW 14.1 % (11.9-15.9); WHITE BLOOD COUNT 5.3 K/mm3 (4.0-10.0)
[2022-02-04 12:12] LABS: ALBUMIN 3.6 g/dl (3.4-5.0); CALCIUM 8.6 mg/dL (8.5-10.1)
[2022-02-04 12:15] LABS: CREATININE 0.8 mg/dL (0.55-1.3)
[2022-02-04 12:17] LABS: BILIRUBIN,TOTAL 0.3 mg/dL (0.2-1); TOT PROT 6.4 g/dl (6.4-8.2)
[2022-02-04] MEDS ORDERED: cloNIDine HCL 0.1 MG TABLET PO ONE (18:05)
[2022-02-04] MEDS ORDERED: BUPRENORPHINE HCL 150 MCG, BUPRENORPHINE HCL 75 MCG BC ONE (19:00)
[2022-02-04] MEDS ORDERED: BUPRENORPHINE HCL 150 MCG FILM BC ONE (19:58)
[2022-02-04] MEDS ORDERED: BUPRENORPHINE HCL 75 MCG FILM BC ONE (19:59)
[2022-02-04] MEDS: MELATONIN 5 MG TABLETS PO SCH (23:48)
[2022-02-04] MEDS: THIAMINE HCL 100 MG TABLET (FP) PO SCH (23:49)
[2022-02-05] MEDS ORDERED: BUPRENORPHINE HCL 150 MCG FILM BC ONE ×2 (06:23→18:04)
[2022-02-05] MEDS ORDERED: BUPRENORPHINE HCL 75 MCG FILM BC ONE ×2 (06:24→18:05)
[2022-02-05] MEDS: BUPRENORPHINE HCL 150 MCG, BUPRENORPHINE HCL 75 MCG BC SCH ×2 (06:24→18:06)
[2022-02-05] MEDS: hydrOXYzine PAMOATE 25 MG CAPSULE (FP) PO SCH ×5 (06:24→22:45)
[2022-02-05] MEDS: diazePAM 5 MG TABLET PO PRN ×3 (07:24→18:06)
[2022-02-05] MEDS: PRENATAL VITAMINS W/ FOLIC ACID TABLET (FP) PO SCH (10:18)
[2022-02-05] MEDS: METHOCARBAMOL 500 MG TABLET PO PRN ×2 (10:29→22:45)
[2022-02-05] MEDS: cloNIDine HCL 0.1 MG TABLET PO PRN ×3 (13:20→22:45)
[2022-02-05 19:11] LABS: SARS-CoV-2 NAA Not Detected (Not Detected)
[2022-02-05] MEDS: THIAMINE HCL 100 MG TABLET (FP) PO SCH (22:45)
[2022-02-05] MEDS: MELATONIN 5 MG TABLETS PO SCH (22:45)
[2022-02-06] MEDS: BUPRENORPHINE HCL 450 MCG FILM BC SCH ×2 (06:01→17:50)
[2022-02-06] MEDS: diazePAM 5 MG TABLET PO PRN ×3 (06:02→17:51)
[2022-02-06] MEDS: hydrOXYzine PAMOATE 25 MG CAPSULE (FP) PO SCH ×5 (06:17→22:14)
[2022-02-06] MEDS: METHOCARBAMOL 500 MG TABLET PO PRN ×2 (10:30→22:14)
[2022-02-06] MEDS: PRENATAL VITAMINS W/ FOLIC ACID TABLET (FP) PO SCH (10:31)
[2022-02-06] MEDS: cloNIDine HCL 0.1 MG TABLET PO PRN ×2 (13:10→22:16)
[2022-02-06] MEDS: THIAMINE HCL 100 MG TABLET (FP) PO SCH (22:14)
[2022-02-06] MEDS: MELATONIN 5 MG TABLETS PO SCH (22:15)
[2022-02-06] MEDS: NICOTINE 10 MG CARTRIDGE (INHALER) IH PRN (22:15)
[2022-02-07] MEDS: hydrOXYzine PAMOATE 25 MG CAPSULE (FP) PO SCH ×5 (05:33→22:16)
[2022-02-07] MEDS: BUPRENORPHINE/NALOXONE 4 MG/1 MG FILM PACKET SL SCH ×2 (05:33→17:48)
[2022-02-07] MEDS: METHOCARBAMOL 500 MG TABLET PO PRN ×2 (05:34→10:15)
[2022-02-07] MEDS: PRENATAL VITAMINS W/ FOLIC ACID TABLET (FP) PO SCH (10:14)
[2022-02-07] MEDS: diazePAM 5 MG TABLET PO PRN ×2 (10:15→22:15)
[2022-02-07] MEDS: cloNIDine HCL 0.1 MG TABLET PO PRN ×2 (10:15→22:15)
[2022-02-07] MEDS: MELATONIN 5 MG TABLETS PO SCH (22:16)
[2022-02-07] MEDS: THIAMINE HCL 100 MG TABLET (FP) PO SCH (22:16)
[2022-02-07] MEDS: NICOTINE 10 MG CARTRIDGE (INHALER) IH PRN (22:30)
[2022-02-08] MEDS: hydrOXYzine PAMOATE 25 MG CAPSULE (FP) PO SCH ×2 (05:46→10:13)
[2022-02-08] MEDS ORDERED: BUPRENORPHINE/NALOXONE 8 MG/2 MG FILM PACKET SL ONE (06:00)
[2022-02-08] MEDS: PRENATAL VITAMINS W/ FOLIC ACID TABLET (FP) PO SCH (10:13)
[2022-02-08] MEDS: METHOCARBAMOL 500 MG TABLET PO PRN (10:16)
[2022-02-08] MEDS: NICOTINE 10 MG CARTRIDGE (INHALER) IH PRN (10:18)
[2022-02-08] MEDS ORDERED: hydrOXYzine PAMOATE 50 MG CAPSULE (FP) PO PRN (12:25)
[2022-02-08 13:11] VITALS: BP 123/64; PULSE 70; TEMP 97.1
== END 2022-02-08 01:15 | disposition other institution (70) | DRG 773 ==
LOC: YASAS 14:54 → UNDOADMIN 19:23 → Y3N 19:23
PROVIDERS: ADMIT Allergy & Immunology; ATTEND Allergy & Immunology
PROC: HZ2ZZZZ Detoxification Services for Substance Abuse Treatment (ICD-10-PCS; principal; 2022-02-03)
DX: F11.23 Opioid dependence with withdrawal (principal); F17.290 Nicotine dependence, other tobacco product, uncomplicated
CPT/HCPCS: 36415; 80053; 85027; 86780; 87811; C9803-CS; J0735; U0003; U0005

== ENCOUNTER 2022-02-08 13:28 | Inpatient (IN) | payer OTHER ==
[2022-02-08] MEDS ORDERED: LOPERAMIDE HCL 2 MG CAPSULE PO PRN (13:49)
[2022-02-08] MEDS ORDERED: MAG HYDROX/AL HYDROX/SIMETH 30 ML UNIT-DOSE CUP PO PRN (13:49)
[2022-02-08] MEDS ORDERED: P-EPHED 60MG/TRIPROLIDI 2.5MG TABLET PO PRN (13:49)
[2022-02-08] MEDS ORDERED: ACETAMINOPHEN 325 MG TABLET (FP) PO PRN (13:49)
[2022-02-08] MEDS ORDERED: MAGNESIUM CITRATE 300 ML BOTTLE PO PRN (13:49)
[2022-02-08] MEDS ORDERED: MAGNESIUM HYDROX 2400MG/30ML ORAL SUSPENSION 30 ML CUP PO PRN (13:49)
[2022-02-08] MEDS ORDERED: MENTHOL/PHENOL 1 EACH UD MM PRN (13:49)
[2022-02-08] MEDS ORDERED: guaiFENesin 200 MG/10 ML 10 ML UNIT-DOSE CUPS PO PRN (13:49)
[2022-02-08] MEDS ORDERED: hydrOXYzine PAMOATE 25 MG CAPSULE (FP) PO PRN (13:53)
[2022-02-08] MEDS ORDERED: hydrOXYzine PAMOATE 25 MG CAPSULE (FP) PO SCH (14:00)
[2022-02-08] MEDS: NICOTINE 10 MG CARTRIDGE (INHALER) IH PRN (14:45)
[2022-02-08] MEDS: BUPRENORPHINE/NALOXONE 8 MG/2 MG FILM PACKET SL SCH (18:02)
[2022-02-08] MEDS: THIAMINE HCL 100 MG TABLET (FP) PO SCH (21:41)
[2022-02-08] MEDS ORDERED: MELATONIN 5 MG TABLETS PO SCH (22:00)
[2022-02-09] MEDS: BUPRENORPHINE/NALOXONE 8 MG/2 MG FILM PACKET SL SCH ×2 (06:18→17:28)
[2022-02-09] MEDS: NICOTINE 10 MG CARTRIDGE (INHALER) IH PRN ×3 (06:18→22:33)
[2022-02-09] MEDS ORDERED: COLLOIDAL OATMEAL 1 BAR EACH TP PRN (08:33)
[2022-02-09] MEDS ORDERED: MELATONIN 5 MG TABLETS PO SCH (09:09)
[2022-02-09] MEDS: PRENATAL VITAMINS W/ FOLIC ACID TABLET (FP) PO SCH (09:42)
[2022-02-09] MEDS: NICOTINE 14 MG/24 HOURS TOPICAL PATCH TD SCH (09:42)
[2022-02-09] MEDS: MINERAL OIL/PETROLAT/WATER TOPICAL CREAM 113 GM JAR TP SCH (09:44)
[2022-02-09] MEDS ORDERED: NICOTINE 7 MG/24 HOURS TOPICAL PATCH TD SCH (10:00)
[2022-02-09] MEDS ORDERED: busPIRone HCL 10 MG TABLET (FP) PO ONE (16:34)
[2022-02-09] MEDS: THIAMINE HCL 100 MG TABLET (FP) PO SCH (21:05)
[2022-02-09] MEDS: hydrOXYzine PAMOATE 50 MG CAPSULE (FP) PO PRN (21:06)
[2022-02-10] MEDS: hydrOXYzine PAMOATE 50 MG CAPSULE (FP) PO PRN (02:03)
[2022-02-10] MEDS: BUPRENORPHINE/NALOXONE 8 MG/2 MG FILM PACKET SL SCH ×2 (06:20→17:47)
[2022-02-10] MEDS ORDERED: busPIRone HCL 5 MG TABLET PO ONE (08:00)
[2022-02-10] MEDS ORDERED: SUVOREXANT 10 MG TABLET PO PRN (08:09)
[2022-02-10] MEDS: NICOTINE 14 MG/24 HOURS TOPICAL PATCH TD SCH (09:47)
[2022-02-10] MEDS: PRENATAL VITAMINS W/ FOLIC ACID TABLET (FP) PO SCH (09:48)
[2022-02-10] MEDS: NICOTINE 10 MG CARTRIDGE (INHALER) IH PRN ×2 (09:49→20:18)
[2022-02-10] MEDS: MINERAL OIL/PETROLAT/WATER TOPICAL CREAM 113 GM JAR TP SCH (09:49)
[2022-02-10] MEDS: busPIRone HCL 5 MG TABLET PO SCH ×2 (13:49→21:36)
[2022-02-10] MEDS ORDERED: busPIRone HCL 5 MG TABLET PO SCH (14:00)
[2022-02-10] MEDS: THIAMINE HCL 100 MG TABLET (FP) PO SCH (21:36)
[2022-02-10] MEDS: SUVOREXANT 10 MG TABLET PO PRN (21:36)
[2022-02-11] MEDS: BUPRENORPHINE/NALOXONE 8 MG/2 MG FILM PACKET SL SCH ×2 (06:24→17:59)
[2022-02-11] MEDS: busPIRone HCL 5 MG TABLET PO SCH (06:25)
[2022-02-11] MEDS: PRENATAL VITAMINS W/ FOLIC ACID TABLET (FP) PO SCH (10:35)
[2022-02-11] MEDS: NICOTINE 14 MG/24 HOURS TOPICAL PATCH TD SCH (10:35)
[2022-02-11] MEDS: MINERAL OIL/PETROLAT/WATER TOPICAL CREAM 113 GM JAR TP SCH (10:35)
[2022-02-11] MEDS: NICOTINE 10 MG CARTRIDGE (INHALER) IH PRN ×2 (10:39→21:55)
[2022-02-11] MEDS: busPIRone HCL 10 MG TABLET (FP) PO SCH ×2 (13:07→21:52)
[2022-02-11] MEDS: NICOTINE POLACRILEX 2 MG GUM BUC PRN ×2 (13:07→21:55)
[2022-02-11] MEDS: hydrOXYzine PAMOATE 25 MG CAPSULE (FP) PO PRN ×2 (14:10→21:52)
[2022-02-11] MEDS: METHYL SALICYLATE/MENTHOL OINT 30 GM TUBE TP SCH (21:51)
[2022-02-11] MEDS: LIDOCAINE PATCH REMOVAL MC SCH (21:52)
[2022-02-11] MEDS: THIAMINE HCL 100 MG TABLET (FP) PO SCH (21:52)
[2022-02-11] MEDS: SUVOREXANT 10 MG TABLET PO PRN (21:54)
[2022-02-12] MEDS: LIDOCAINE 5% TOPICAL PATCH TP SCH ×2 (00:45→10:01)
[2022-02-12] MEDS: BUPRENORPHINE/NALOXONE 8 MG/2 MG FILM PACKET SL SCH ×2 (06:15→17:39)
[2022-02-12] MEDS: busPIRone HCL 10 MG TABLET (FP) PO SCH ×3 (06:15→21:21)
[2022-02-12] MEDS: NICOTINE 10 MG CARTRIDGE (INHALER) IH PRN ×4 (06:47→21:24)
[2022-02-12] MEDS: NICOTINE POLACRILEX 2 MG GUM BUC PRN ×4 (08:51→21:24)
[2022-02-12] MEDS: METHYL SALICYLATE/MENTHOL OINT 30 GM TUBE TP SCH ×2 (10:00→21:21)
[2022-02-12] MEDS: PRENATAL VITAMINS W/ FOLIC ACID TABLET (FP) PO SCH (10:01)
[2022-02-12] MEDS: MINERAL OIL/PETROLAT/WATER TOPICAL CREAM 113 GM JAR TP SCH (10:01)
[2022-02-12] MEDS: NICOTINE 14 MG/24 HOURS TOPICAL PATCH TD SCH (10:01)
[2022-02-12] MEDS: hydrOXYzine PAMOATE 25 MG CAPSULE (FP) PO PRN ×3 (10:02→21:21)
[2022-02-12 14:08] LABS: SARS-CoV-2 NAA Not Detected (Not Detected)
[2022-02-12] MEDS: THIAMINE HCL 100 MG TABLET (FP) PO SCH (21:20)
[2022-02-12] MEDS: SUVOREXANT 10 MG TABLET PO PRN (21:22)
[2022-02-12] MEDS: LIDOCAINE PATCH REMOVAL MC SCH (21:23)
[2022-02-13] MEDS: busPIRone HCL 10 MG TABLET (FP) PO SCH ×3 (06:16→21:06)
[2022-02-13] MEDS: BUPRENORPHINE/NALOXONE 8 MG/2 MG FILM PACKET SL SCH ×2 (06:16→17:24)
[2022-02-13] MEDS: NICOTINE 10 MG CARTRIDGE (INHALER) IH PRN ×2 (06:17→14:12)
[2022-02-13] MEDS: NICOTINE POLACRILEX 2 MG GUM BUC PRN ×3 (07:57→14:14)
[2022-02-13] MEDS: hydrOXYzine PAMOATE 25 MG CAPSULE (FP) PO PRN ×3 (07:58→19:59)
[2022-02-13] MEDS: LIDOCAINE 5% TOPICAL PATCH TP SCH (09:55)
[2022-02-13] MEDS: NICOTINE 14 MG/24 HOURS TOPICAL PATCH TD SCH (09:55)
[2022-02-13] MEDS: PRENATAL VITAMINS W/ FOLIC ACID TABLET (FP) PO SCH (09:56)
[2022-02-13] MEDS: METHYL SALICYLATE/MENTHOL OINT 30 GM TUBE TP SCH ×2 (10:09→21:08)
[2022-02-13] MEDS: MINERAL OIL/PETROLAT/WATER TOPICAL CREAM 113 GM JAR TP SCH (10:09)
[2022-02-13] MEDS: LIDOCAINE PATCH REMOVAL MC SCH (21:06)
[2022-02-13] MEDS: THIAMINE HCL 100 MG TABLET (FP) PO SCH (21:06)
[2022-02-13] MEDS: SUVOREXANT 10 MG TABLET PO PRN (21:07)
[2022-02-14] MEDS: BUPRENORPHINE/NALOXONE 8 MG/2 MG FILM PACKET SL SCH ×2 (06:13→17:07)
[2022-02-14] MEDS: busPIRone HCL 10 MG TABLET (FP) PO SCH ×3 (06:13→21:15)
[2022-02-14] MEDS: hydrOXYzine PAMOATE 25 MG CAPSULE (FP) PO PRN ×3 (08:42→21:15)
[2022-02-14] MEDS: METHYL SALICYLATE/MENTHOL OINT 30 GM TUBE TP SCH ×2 (09:41→21:15)
[2022-02-14] MEDS: MINERAL OIL/PETROLAT/WATER TOPICAL CREAM 113 GM JAR TP SCH (09:41)
[2022-02-14] MEDS: LIDOCAINE 5% TOPICAL PATCH TP SCH (09:42)
[2022-02-14] MEDS: NICOTINE 14 MG/24 HOURS TOPICAL PATCH TD SCH (09:42)
[2022-02-14] MEDS: NICOTINE POLACRILEX 2 MG GUM BUC PRN ×2 (09:42→17:08)
[2022-02-14] MEDS: NICOTINE 10 MG CARTRIDGE (INHALER) IH PRN ×3 (09:42→21:16)
[2022-02-14] MEDS: PRENATAL VITAMINS W/ FOLIC ACID TABLET (FP) PO SCH (09:42)
[2022-02-14] MEDS: THIAMINE HCL 100 MG TABLET (FP) PO SCH (21:14)
[2022-02-14] MEDS: IBUPROFEN 400 MG TABLET (FP) PO PRN (21:15)
[2022-02-14] MEDS: LIDOCAINE PATCH REMOVAL MC SCH (21:15)
[2022-02-15] MEDS: busPIRone HCL 10 MG TABLET (FP) PO SCH ×3 (06:15→21:30)
[2022-02-15] MEDS: BUPRENORPHINE/NALOXONE 8 MG/2 MG FILM PACKET SL SCH ×2 (06:15→18:03)
[2022-02-15] MEDS: hydrOXYzine PAMOATE 25 MG CAPSULE (FP) PO PRN ×3 (06:59→21:31)
[2022-02-15] MEDS: PRENATAL VITAMINS W/ FOLIC ACID TABLET (FP) PO SCH (09:31)
[2022-02-15] MEDS: MINERAL OIL/PETROLAT/WATER TOPICAL CREAM 113 GM JAR TP SCH (09:31)
[2022-02-15] MEDS: NICOTINE 14 MG/24 HOURS TOPICAL PATCH TD SCH (09:31)
[2022-02-15] MEDS: METHYL SALICYLATE/MENTHOL OINT 30 GM TUBE TP SCH ×2 (09:31→22:51)
[2022-02-15] MEDS: LIDOCAINE 5% TOPICAL PATCH TP SCH (09:33)
[2022-02-15] MEDS: IBUPROFEN 400 MG TABLET (FP) PO PRN ×2 (09:33→16:23)
[2022-02-15] MEDS: NICOTINE 10 MG CARTRIDGE (INHALER) IH PRN ×3 (11:49→21:31)
[2022-02-15] MEDS: THIAMINE HCL 100 MG TABLET (FP) PO SCH (21:30)
[2022-02-15] MEDS ORDERED: SUVOREXANT 10 MG TABLET PO PRN (22:00)
[2022-02-15] MEDS: LIDOCAINE PATCH REMOVAL MC SCH (22:51)
[2022-02-16] MEDS: BUPRENORPHINE/NALOXONE 8 MG/2 MG FILM PACKET SL SCH ×2 (06:19→18:59)
[2022-02-16] MEDS: busPIRone HCL 10 MG TABLET (FP) PO SCH ×3 (06:19→21:23)
[2022-02-16] MEDS: hydrOXYzine PAMOATE 25 MG CAPSULE (FP) PO PRN ×3 (08:21→21:23)
[2022-02-16] MEDS: NICOTINE 14 MG/24 HOURS TOPICAL PATCH TD SCH (10:12)
[2022-02-16] MEDS: PRENATAL VITAMINS W/ FOLIC ACID TABLET (FP) PO SCH (10:12)
[2022-02-16] MEDS: IBUPROFEN 400 MG TABLET (FP) PO PRN (10:13)
[2022-02-16] MEDS: NICOTINE 10 MG CARTRIDGE (INHALER) IH PRN ×2 (10:14→21:24)
[2022-02-16] MEDS: NICOTINE POLACRILEX 2 MG GUM BUC PRN (10:14)
[2022-02-16] MEDS: MINERAL OIL/PETROLAT/WATER TOPICAL CREAM 113 GM JAR TP SCH (10:15)
[2022-02-16] MEDS: METHYL SALICYLATE/MENTHOL OINT 30 GM TUBE TP SCH ×2 (10:15→21:23)
[2022-02-16] MEDS: LIDOCAINE 5% TOPICAL PATCH TP SCH (10:15)
[2022-02-16] MEDS: THIAMINE HCL 100 MG TABLET (FP) PO SCH (21:23)
[2022-02-16] MEDS: LIDOCAINE PATCH REMOVAL MC SCH (21:23)
[2022-02-17] MEDS: BUPRENORPHINE/NALOXONE 8 MG/2 MG FILM PACKET SL SCH ×2 (06:28→17:27)
[2022-02-17] MEDS: busPIRone HCL 10 MG TABLET (FP) PO SCH ×3 (06:28→21:06)
[2022-02-17] MEDS: hydrOXYzine PAMOATE 25 MG CAPSULE (FP) PO PRN ×3 (06:29→21:06)
[2022-02-17] MEDS: PRENATAL VITAMINS W/ FOLIC ACID TABLET (FP) PO SCH (09:44)
[2022-02-17] MEDS: IBUPROFEN 400 MG TABLET (FP) PO PRN ×2 (09:45→17:27)
[2022-02-17] MEDS: METHYL SALICYLATE/MENTHOL OINT 30 GM TUBE TP SCH ×2 (10:03→21:08)
[2022-02-17] MEDS: LIDOCAINE 5% TOPICAL PATCH TP SCH (10:04)
[2022-02-17] MEDS: MINERAL OIL/PETROLAT/WATER TOPICAL CREAM 113 GM JAR TP SCH (10:04)
[2022-02-17] MEDS: NICOTINE 14 MG/24 HOURS TOPICAL PATCH TD SCH (10:04)
[2022-02-17] MEDS: NICOTINE 10 MG CARTRIDGE (INHALER) IH PRN (11:56)
[2022-02-17] MEDS: THIAMINE HCL 100 MG TABLET (FP) PO SCH (21:06)
[2022-02-17] MEDS: LIDOCAINE PATCH REMOVAL MC SCH (21:08)
[2022-02-18] MEDS: BUPRENORPHINE/NALOXONE 8 MG/2 MG FILM PACKET SL SCH ×2 (06:15→17:31)
[2022-02-18] MEDS: busPIRone HCL 10 MG TABLET (FP) PO SCH ×3 (06:15→21:14)
[2022-02-18] MEDS: hydrOXYzine PAMOATE 25 MG CAPSULE (FP) PO PRN ×3 (06:15→21:14)
[2022-02-18] MEDS: NICOTINE 10 MG CARTRIDGE (INHALER) IH PRN ×2 (06:16→15:10)
[2022-02-18] MEDS: MINERAL OIL/PETROLAT/WATER TOPICAL CREAM 113 GM JAR TP SCH (09:35)
[2022-02-18] MEDS: PRENATAL VITAMINS W/ FOLIC ACID TABLET (FP) PO SCH (09:35)
[2022-02-18] MEDS: NICOTINE 14 MG/24 HOURS TOPICAL PATCH TD SCH (09:35)
[2022-02-18] MEDS: METHYL SALICYLATE/MENTHOL OINT 30 GM TUBE TP SCH ×2 (09:35→21:15)
[2022-02-18] MEDS: LIDOCAINE 5% TOPICAL PATCH TP SCH (09:35)
[2022-02-18] MEDS: THIAMINE HCL 100 MG TABLET (FP) PO SCH (21:14)
[2022-02-18] MEDS: SUVOREXANT 10 MG TABLET PO PRN (21:14)
[2022-02-18] MEDS: LIDOCAINE PATCH REMOVAL MC SCH (21:15)
[2022-02-19] MEDS: busPIRone HCL 10 MG TABLET (FP) PO SCH ×3 (06:39→21:26)
[2022-02-19] MEDS: BUPRENORPHINE/NALOXONE 8 MG/2 MG FILM PACKET SL SCH ×2 (06:40→17:43)
[2022-02-19] MEDS: hydrOXYzine PAMOATE 25 MG CAPSULE (FP) PO PRN ×3 (06:40→21:28)
[2022-02-19] MEDS: NICOTINE 10 MG CARTRIDGE (INHALER) IH PRN ×2 (10:08→17:43)
[2022-02-19] MEDS: PRENATAL VITAMINS W/ FOLIC ACID TABLET (FP) PO SCH (10:08)
[2022-02-19] MEDS: MINERAL OIL/PETROLAT/WATER TOPICAL CREAM 113 GM JAR TP SCH (10:09)
[2022-02-19] MEDS: LIDOCAINE 5% TOPICAL PATCH TP SCH (10:09)
[2022-02-19] MEDS: METHYL SALICYLATE/MENTHOL OINT 30 GM TUBE TP SCH ×2 (10:09→21:26)
[2022-02-19] MEDS: NICOTINE 14 MG/24 HOURS TOPICAL PATCH TD SCH (10:09)
[2022-02-19] MEDS: THIAMINE HCL 100 MG TABLET (FP) PO SCH (21:26)
[2022-02-19] MEDS: SUVOREXANT 10 MG TABLET PO PRN (21:27)
[2022-02-19] MEDS: LIDOCAINE PATCH REMOVAL MC SCH (21:49)
[2022-02-20] MEDS: busPIRone HCL 10 MG TABLET (FP) PO SCH ×3 (06:21→21:08)
[2022-02-20] MEDS: hydrOXYzine PAMOATE 25 MG CAPSULE (FP) PO PRN ×3 (06:22→21:08)
[2022-02-20] MEDS: BUPRENORPHINE/NALOXONE 8 MG/2 MG FILM PACKET SL SCH ×2 (06:22→17:56)
[2022-02-20] MEDS: NICOTINE 10 MG CARTRIDGE (INHALER) IH PRN ×2 (06:46→21:08)
[2022-02-20] MEDS: LIDOCAINE 5% TOPICAL PATCH TP SCH (09:31)
[2022-02-20] MEDS: NICOTINE 14 MG/24 HOURS TOPICAL PATCH TD SCH (09:32)
[2022-02-20] MEDS: MINERAL OIL/PETROLAT/WATER TOPICAL CREAM 113 GM JAR TP SCH (09:32)
[2022-02-20] MEDS: METHYL SALICYLATE/MENTHOL OINT 30 GM TUBE TP SCH ×2 (09:32→21:08)
[2022-02-20] MEDS: PRENATAL VITAMINS W/ FOLIC ACID TABLET (FP) PO SCH (09:32)
[2022-02-20] MEDS: NICOTINE POLACRILEX 2 MG GUM BUC PRN ×2 (09:34→21:07)
[2022-02-20] MEDS: IBUPROFEN 400 MG TABLET (FP) PO PRN (09:34)
[2022-02-20] MEDS: THIAMINE HCL 100 MG TABLET (FP) PO SCH (21:08)
[2022-02-20] MEDS: LIDOCAINE PATCH REMOVAL MC SCH (21:08)
[2022-02-20] MEDS: SUVOREXANT 10 MG TABLET PO PRN (21:08)
[2022-02-21] MEDS: busPIRone HCL 10 MG TABLET (FP) PO SCH ×3 (06:34→21:09)
[2022-02-21] MEDS: BUPRENORPHINE/NALOXONE 8 MG/2 MG FILM PACKET SL SCH ×2 (06:35→17:46)
[2022-02-21] MEDS: hydrOXYzine PAMOATE 25 MG CAPSULE (FP) PO PRN ×3 (06:35→21:09)
[2022-02-21] MEDS: NICOTINE POLACRILEX 2 MG GUM BUC PRN ×3 (06:36→13:46)
[2022-02-21] MEDS: NICOTINE 10 MG CARTRIDGE (INHALER) IH PRN ×3 (07:21→21:10)
[2022-02-21] MEDS: LIDOCAINE 5% TOPICAL PATCH TP SCH (09:58)
[2022-02-21] MEDS: PRENATAL VITAMINS W/ FOLIC ACID TABLET (FP) PO SCH (09:58)
[2022-02-21] MEDS: METHYL SALICYLATE/MENTHOL OINT 30 GM TUBE TP SCH ×2 (09:59→21:09)
[2022-02-21] MEDS: NICOTINE 14 MG/24 HOURS TOPICAL PATCH TD SCH (09:59)
[2022-02-21] MEDS: MINERAL OIL/PETROLAT/WATER TOPICAL CREAM 113 GM JAR TP SCH (09:59)
[2022-02-21] MEDS: IBUPROFEN 400 MG TABLET (FP) PO PRN (10:01)
[2022-02-21] MEDS: LIDOCAINE PATCH REMOVAL MC SCH (21:10)
[2022-02-21] MEDS: THIAMINE HCL 100 MG TABLET (FP) PO SCH (21:10)
[2022-02-21] MEDS: SUVOREXANT 10 MG TABLET PO PRN (21:10)
[2022-02-22] MEDS: BUPRENORPHINE/NALOXONE 8 MG/2 MG FILM PACKET SL SCH ×2 (06:33→17:07)
[2022-02-22] MEDS: hydrOXYzine PAMOATE 25 MG CAPSULE (FP) PO PRN ×3 (06:33→21:30)
[2022-02-22] MEDS: busPIRone HCL 10 MG TABLET (FP) PO SCH ×3 (06:33→21:30)
[2022-02-22] MEDS: NICOTINE 10 MG CARTRIDGE (INHALER) IH PRN (06:36)
[2022-02-22] MEDS: PRENATAL VITAMINS W/ FOLIC ACID TABLET (FP) PO SCH (10:25)
[2022-02-22] MEDS: LIDOCAINE 5% TOPICAL PATCH TP SCH (10:26)
[2022-02-22] MEDS: MINERAL OIL/PETROLAT/WATER TOPICAL CREAM 113 GM JAR TP SCH (10:26)
[2022-02-22] MEDS: METHYL SALICYLATE/MENTHOL OINT 30 GM TUBE TP SCH ×2 (10:26→21:31)
[2022-02-22] MEDS: IBUPROFEN 400 MG TABLET (FP) PO PRN (10:27)
[2022-02-22] MEDS: NICOTINE 14 MG/24 HOURS TOPICAL PATCH TD SCH (10:28)
[2022-02-22] MEDS: THIAMINE HCL 100 MG TABLET (FP) PO SCH (21:30)
[2022-02-22] MEDS: LIDOCAINE PATCH REMOVAL MC SCH (21:31)
[2022-02-23] MEDS: BUPRENORPHINE/NALOXONE 8 MG/2 MG FILM PACKET SL SCH ×2 (06:20→17:16)
[2022-02-23] MEDS: busPIRone HCL 10 MG TABLET (FP) PO SCH ×3 (06:20→21:21)
[2022-02-23] MEDS: hydrOXYzine PAMOATE 25 MG CAPSULE (FP) PO PRN ×3 (06:20→21:21)
[2022-02-23] MEDS: NICOTINE 10 MG CARTRIDGE (INHALER) IH PRN ×2 (06:58→21:21)
[2022-02-23] MEDS: LIDOCAINE 5% TOPICAL PATCH TP SCH (09:52)
[2022-02-23] MEDS: METHYL SALICYLATE/MENTHOL OINT 30 GM TUBE TP SCH ×2 (09:52→21:41)
[2022-02-23] MEDS: PRENATAL VITAMINS W/ FOLIC ACID TABLET (FP) PO SCH (09:52)
[2022-02-23] MEDS: MINERAL OIL/PETROLAT/WATER TOPICAL CREAM 113 GM JAR TP SCH (09:52)
[2022-02-23] MEDS: NICOTINE 14 MG/24 HOURS TOPICAL PATCH TD SCH (09:52)
[2022-02-23] MEDS: IBUPROFEN 400 MG TABLET (FP) PO PRN (09:53)
[2022-02-23] MEDS: NICOTINE POLACRILEX 2 MG GUM BUC PRN (09:53)
[2022-02-23] MEDS: THIAMINE HCL 100 MG TABLET (FP) PO SCH (21:21)
[2022-02-23] MEDS: SUVOREXANT 10 MG TABLET PO PRN (21:22)
[2022-02-23] MEDS: LIDOCAINE PATCH REMOVAL MC SCH (21:41)
[2022-02-24] MEDS: BUPRENORPHINE/NALOXONE 8 MG/2 MG FILM PACKET SL SCH ×2 (06:08→18:04)
[2022-02-24] MEDS: busPIRone HCL 10 MG TABLET (FP) PO SCH ×3 (06:08→21:03)
[2022-02-24] MEDS: hydrOXYzine PAMOATE 25 MG CAPSULE (FP) PO PRN ×3 (06:08→21:03)
[2022-02-24] MEDS: NICOTINE 10 MG CARTRIDGE (INHALER) IH PRN ×2 (09:45→21:04)
[2022-02-24] MEDS: LIDOCAINE 5% TOPICAL PATCH TP SCH (09:46)
[2022-02-24] MEDS: PRENATAL VITAMINS W/ FOLIC ACID TABLET (FP) PO SCH (09:46)
[2022-02-24] MEDS: MINERAL OIL/PETROLAT/WATER TOPICAL CREAM 113 GM JAR TP SCH (09:46)
[2022-02-24] MEDS: NICOTINE 14 MG/24 HOURS TOPICAL PATCH TD SCH (09:46)
[2022-02-24] MEDS: NICOTINE POLACRILEX 2 MG GUM BUC PRN ×2 (09:47→21:05)
[2022-02-24] MEDS: METHYL SALICYLATE/MENTHOL OINT 30 GM TUBE TP SCH ×2 (11:00→21:02)
[2022-02-24] MEDS: THIAMINE HCL 100 MG TABLET (FP) PO SCH (21:03)
[2022-02-24] MEDS: SUVOREXANT 10 MG TABLET PO PRN (21:03)
[2022-02-24] MEDS: LIDOCAINE PATCH REMOVAL MC SCH (21:05)
[2022-02-25] MEDS: hydrOXYzine PAMOATE 25 MG CAPSULE (FP) PO PRN ×3 (06:13→21:30)
[2022-02-25] MEDS: BUPRENORPHINE/NALOXONE 8 MG/2 MG FILM PACKET SL SCH ×2 (06:13→18:00)
[2022-02-25] MEDS: busPIRone HCL 10 MG TABLET (FP) PO SCH ×3 (06:13→21:27)
[2022-02-25] MEDS: NICOTINE POLACRILEX 2 MG GUM BUC PRN ×3 (10:26→21:32)
[2022-02-25] MEDS: PRENATAL VITAMINS W/ FOLIC ACID TABLET (FP) PO SCH (10:26)
[2022-02-25] MEDS: NICOTINE 10 MG CARTRIDGE (INHALER) IH PRN ×2 (10:26→19:02)
[2022-02-25] MEDS: NICOTINE 14 MG/24 HOURS TOPICAL PATCH TD SCH (10:27)
[2022-02-25] MEDS: METHYL SALICYLATE/MENTHOL OINT 30 GM TUBE TP SCH ×2 (10:27→21:27)
[2022-02-25] MEDS: LIDOCAINE 5% TOPICAL PATCH TP SCH (10:27)
[2022-02-25] MEDS: MINERAL OIL/PETROLAT/WATER TOPICAL CREAM 113 GM JAR TP SCH (10:27)
[2022-02-25] MEDS: THIAMINE HCL 100 MG TABLET (FP) PO SCH (21:27)
[2022-02-25] MEDS: SUVOREXANT 10 MG TABLET PO PRN (21:29)
[2022-02-25] MEDS: IBUPROFEN 400 MG TABLET (FP) PO PRN (21:30)
[2022-02-25] MEDS: LIDOCAINE PATCH REMOVAL MC SCH (21:53)
[2022-02-26] MEDS: BUPRENORPHINE/NALOXONE 8 MG/2 MG FILM PACKET SL SCH ×2 (06:36→17:40)
[2022-02-26] MEDS: busPIRone HCL 10 MG TABLET (FP) PO SCH ×3 (06:36→21:33)
[2022-02-26] MEDS: hydrOXYzine PAMOATE 25 MG CAPSULE (FP) PO PRN ×3 (06:37→21:33)
[2022-02-26] MEDS: IBUPROFEN 400 MG TABLET (FP) PO PRN (10:15)
[2022-02-26] MEDS: PRENATAL VITAMINS W/ FOLIC ACID TABLET (FP) PO SCH (10:15)
[2022-02-26] MEDS: NICOTINE 10 MG CARTRIDGE (INHALER) IH PRN ×2 (10:15→17:42)
[2022-02-26] MEDS: NICOTINE POLACRILEX 2 MG GUM BUC PRN (10:17)
[2022-02-26] MEDS: METHYL SALICYLATE/MENTHOL OINT 30 GM TUBE TP SCH ×2 (10:22→21:33)
[2022-02-26] MEDS: NICOTINE 14 MG/24 HOURS TOPICAL PATCH TD SCH (10:22)
[2022-02-26] MEDS: LIDOCAINE 5% TOPICAL PATCH TP SCH (10:22)
[2022-02-26] MEDS: MINERAL OIL/PETROLAT/WATER TOPICAL CREAM 113 GM JAR TP SCH (10:22)
[2022-02-26] MEDS: THIAMINE HCL 100 MG TABLET (FP) PO SCH (21:32)
[2022-02-26] MEDS: LIDOCAINE PATCH REMOVAL MC SCH (21:33)
[2022-02-27] MEDS: BUPRENORPHINE/NALOXONE 8 MG/2 MG FILM PACKET SL SCH ×2 (06:27→17:28)
[2022-02-27] MEDS: busPIRone HCL 10 MG TABLET (FP) PO SCH ×3 (06:27→21:09)
[2022-02-27] MEDS: hydrOXYzine PAMOATE 25 MG CAPSULE (FP) PO PRN ×3 (06:28→21:08)
[2022-02-27] MEDS: NICOTINE POLACRILEX 2 MG GUM BUC PRN ×2 (08:46→11:55)
[2022-02-27] MEDS: METHYL SALICYLATE/MENTHOL OINT 30 GM TUBE TP SCH ×2 (09:31→21:09)
[2022-02-27] MEDS: PRENATAL VITAMINS W/ FOLIC ACID TABLET (FP) PO SCH (09:32)
[2022-02-27] MEDS: MINERAL OIL/PETROLAT/WATER TOPICAL CREAM 113 GM JAR TP SCH (09:32)
[2022-02-27] MEDS: LIDOCAINE 5% TOPICAL PATCH TP SCH (09:32)
[2022-02-27] MEDS: NICOTINE 14 MG/24 HOURS TOPICAL PATCH TD SCH (09:32)
[2022-02-27] MEDS: NICOTINE 10 MG CARTRIDGE (INHALER) IH PRN (09:32)
[2022-02-27] MEDS: THIAMINE HCL 100 MG TABLET (FP) PO SCH (21:08)
[2022-02-27] MEDS: LIDOCAINE PATCH REMOVAL MC SCH (21:09)
[2022-02-27] MEDS: SUVOREXANT 10 MG TABLET PO PRN (21:10)
[2022-02-28] MEDS: hydrOXYzine PAMOATE 25 MG CAPSULE (FP) PO PRN ×3 (06:23→21:23)
[2022-02-28] MEDS: busPIRone HCL 10 MG TABLET (FP) PO SCH ×3 (06:23→21:22)
[2022-02-28] MEDS: BUPRENORPHINE/NALOXONE 8 MG/2 MG FILM PACKET SL SCH ×2 (06:23→18:34)
[2022-02-28] MEDS: NICOTINE POLACRILEX 2 MG GUM BUC PRN ×2 (06:25→21:25)
[2022-02-28] MEDS: NICOTINE 10 MG CARTRIDGE (INHALER) IH PRN ×2 (10:18→21:24)
[2022-02-28] MEDS: PRENATAL VITAMINS W/ FOLIC ACID TABLET (FP) PO SCH (10:18)
[2022-02-28] MEDS: MINERAL OIL/PETROLAT/WATER TOPICAL CREAM 113 GM JAR TP SCH (10:18)
[2022-02-28] MEDS: LIDOCAINE 5% TOPICAL PATCH TP SCH (10:18)
[2022-02-28] MEDS: METHYL SALICYLATE/MENTHOL OINT 30 GM TUBE TP SCH ×2 (10:18→21:22)
[2022-02-28] MEDS: NICOTINE 14 MG/24 HOURS TOPICAL PATCH TD SCH (10:19)
[2022-02-28] MEDS: THIAMINE HCL 100 MG TABLET (FP) PO SCH (21:22)
[2022-02-28] MEDS: SUVOREXANT 10 MG TABLET PO PRN (21:23)
[2022-02-28] MEDS: LIDOCAINE PATCH REMOVAL MC SCH (22:09)
[2022-03-01] MEDS: hydrOXYzine PAMOATE 25 MG CAPSULE (FP) PO PRN ×3 (06:16→20:35)
[2022-03-01] MEDS: NICOTINE POLACRILEX 2 MG GUM BUC PRN ×4 (06:16→20:36)
[2022-03-01] MEDS: busPIRone HCL 10 MG TABLET (FP) PO SCH ×3 (06:16→21:49)
[2022-03-01] MEDS: BUPRENORPHINE/NALOXONE 8 MG/2 MG FILM PACKET SL SCH ×2 (06:16→18:45)
[2022-03-01] MEDS: NICOTINE 10 MG CARTRIDGE (INHALER) IH PRN ×2 (08:54→20:35)
[2022-03-01] MEDS: LIDOCAINE 5% TOPICAL PATCH TP SCH (10:19)
[2022-03-01] MEDS: MINERAL OIL/PETROLAT/WATER TOPICAL CREAM 113 GM JAR TP SCH (10:19)
[2022-03-01] MEDS: PRENATAL VITAMINS W/ FOLIC ACID TABLET (FP) PO SCH (10:19)
[2022-03-01] MEDS: NICOTINE 14 MG/24 HOURS TOPICAL PATCH TD SCH (10:19)
[2022-03-01] MEDS: METHYL SALICYLATE/MENTHOL OINT 30 GM TUBE TP SCH ×2 (10:20→21:49)
[2022-03-01] MEDS: THIAMINE HCL 100 MG TABLET (FP) PO SCH (21:49)
[2022-03-01] MEDS: SUVOREXANT 10 MG TABLET PO PRN (21:50)
[2022-03-01] MEDS: LIDOCAINE PATCH REMOVAL MC SCH (21:50)
[2022-03-02] MEDS: busPIRone HCL 10 MG TABLET (FP) PO SCH ×3 (06:19→21:25)
[2022-03-02] MEDS: hydrOXYzine PAMOATE 25 MG CAPSULE (FP) PO PRN ×2 (06:19→21:25)
[2022-03-02] MEDS: NICOTINE POLACRILEX 2 MG GUM BUC PRN ×2 (06:19→09:49)
[2022-03-02] MEDS: BUPRENORPHINE/NALOXONE 8 MG/2 MG FILM PACKET SL SCH ×2 (06:19→17:24)
[2022-03-02] MEDS: NICOTINE 10 MG CARTRIDGE (INHALER) IH PRN (06:20)
[2022-03-02] MEDS: LIDOCAINE 5% TOPICAL PATCH TP SCH (09:48)
[2022-03-02] MEDS: PRENATAL VITAMINS W/ FOLIC ACID TABLET (FP) PO SCH (09:48)
[2022-03-02] MEDS: METHYL SALICYLATE/MENTHOL OINT 30 GM TUBE TP SCH ×2 (09:48→21:40)
[2022-03-02] MEDS: NICOTINE 14 MG/24 HOURS TOPICAL PATCH TD SCH (09:48)
[2022-03-02] MEDS: MINERAL OIL/PETROLAT/WATER TOPICAL CREAM 113 GM JAR TP SCH (09:48)
[2022-03-02] MEDS: LIDOCAINE PATCH REMOVAL MC SCH (21:40)
[2022-03-02] MEDS: THIAMINE HCL 100 MG TABLET (FP) PO SCH (21:40)
[2022-03-02] MEDS ORDERED: SUVOREXANT 10 MG TABLET PO PRN (22:00)
[2022-03-03] MEDS: BUPRENORPHINE/NALOXONE 8 MG/2 MG FILM PACKET SL SCH ×2 (06:18→17:09)
[2022-03-03] MEDS: NICOTINE 10 MG CARTRIDGE (INHALER) IH PRN ×3 (06:18→21:18)
[2022-03-03] MEDS: hydrOXYzine PAMOATE 25 MG CAPSULE (FP) PO PRN ×3 (06:18→21:17)
[2022-03-03] MEDS: busPIRone HCL 10 MG TABLET (FP) PO SCH ×3 (06:18→21:17)
[2022-03-03] MEDS: NICOTINE POLACRILEX 2 MG GUM BUC PRN ×3 (06:18→12:29)
[2022-03-03] MEDS: MINERAL OIL/PETROLAT/WATER TOPICAL CREAM 113 GM JAR TP SCH (10:02)
[2022-03-03] MEDS: LIDOCAINE 5% TOPICAL PATCH TP SCH (10:02)
[2022-03-03] MEDS: PRENATAL VITAMINS W/ FOLIC ACID TABLET (FP) PO SCH (10:02)
[2022-03-03] MEDS: METHYL SALICYLATE/MENTHOL OINT 30 GM TUBE TP SCH ×2 (10:02→21:17)
[2022-03-03] MEDS: NICOTINE 14 MG/24 HOURS TOPICAL PATCH TD SCH (10:02)
[2022-03-03] MEDS: THIAMINE HCL 100 MG TABLET (FP) PO SCH (21:17)
[2022-03-03] MEDS: LIDOCAINE PATCH REMOVAL MC SCH (21:19)
[2022-03-04] MEDS: BUPRENORPHINE/NALOXONE 8 MG/2 MG FILM PACKET SL SCH ×2 (06:24→17:44)
[2022-03-04] MEDS: hydrOXYzine PAMOATE 25 MG CAPSULE (FP) PO PRN ×3 (06:24→21:12)
[2022-03-04] MEDS: busPIRone HCL 10 MG TABLET (FP) PO SCH ×3 (06:24→21:12)
[2022-03-04] MEDS: NICOTINE 10 MG CARTRIDGE (INHALER) IH PRN ×2 (06:25→09:44)
[2022-03-04] MEDS: NICOTINE POLACRILEX 2 MG GUM BUC PRN ×3 (06:25→21:13)
[2022-03-04] MEDS: PRENATAL VITAMINS W/ FOLIC ACID TABLET (FP) PO SCH (09:44)
[2022-03-04] MEDS: LIDOCAINE 5% TOPICAL PATCH TP SCH (11:23)
[2022-03-04] MEDS: METHYL SALICYLATE/MENTHOL OINT 30 GM TUBE TP SCH ×2 (11:23→21:13)
[2022-03-04] MEDS: NICOTINE 14 MG/24 HOURS TOPICAL PATCH TD SCH (11:23)
[2022-03-04] MEDS: MINERAL OIL/PETROLAT/WATER TOPICAL CREAM 113 GM JAR TP SCH (11:23)
[2022-03-04] MEDS: THIAMINE HCL 100 MG TABLET (FP) PO SCH (21:12)
[2022-03-04] MEDS: LIDOCAINE PATCH REMOVAL MC SCH (21:13)
[2022-03-04] MEDS: SUVOREXANT 10 MG TABLET PO PRN (21:13)
[2022-03-05] MEDS: BUPRENORPHINE/NALOXONE 8 MG/2 MG FILM PACKET SL SCH ×2 (06:05→18:03)
[2022-03-05] MEDS: hydrOXYzine PAMOATE 25 MG CAPSULE (FP) PO PRN ×3 (06:05→22:12)
[2022-03-05] MEDS: busPIRone HCL 10 MG TABLET (FP) PO SCH ×3 (06:05→22:11)
[2022-03-05] MEDS: NICOTINE POLACRILEX 2 MG GUM BUC PRN ×6 (06:15→20:11)
[2022-03-05] MEDS: NICOTINE 14 MG/24 HOURS TOPICAL PATCH TD SCH (10:10)
[2022-03-05] MEDS: METHYL SALICYLATE/MENTHOL OINT 30 GM TUBE TP SCH ×2 (10:10→22:08)
[2022-03-05] MEDS: PRENATAL VITAMINS W/ FOLIC ACID TABLET (FP) PO SCH (10:10)
[2022-03-05] MEDS: MINERAL OIL/PETROLAT/WATER TOPICAL CREAM 113 GM JAR TP SCH (10:10)
[2022-03-05] MEDS: LIDOCAINE 5% TOPICAL PATCH TP SCH (10:10)
[2022-03-05] MEDS: NICOTINE 10 MG CARTRIDGE (INHALER) IH PRN ×3 (10:10→16:57)
[2022-03-05] MEDS: LIDOCAINE PATCH REMOVAL MC SCH (22:07)
[2022-03-05] MEDS: SUVOREXANT 10 MG TABLET PO PRN (22:10)
[2022-03-05] MEDS: THIAMINE HCL 100 MG TABLET (FP) PO SCH (22:11)
[2022-03-06] MEDS: busPIRone HCL 10 MG TABLET (FP) PO SCH ×3 (06:32→21:20)
[2022-03-06] MEDS: BUPRENORPHINE/NALOXONE 8 MG/2 MG FILM PACKET SL SCH ×2 (06:32→18:10)
[2022-03-06] MEDS: hydrOXYzine PAMOATE 25 MG CAPSULE (FP) PO PRN ×3 (06:32→21:20)
[2022-03-06] MEDS: NICOTINE POLACRILEX 2 MG GUM BUC PRN ×3 (06:34→18:13)
[2022-03-06] MEDS: MINERAL OIL/PETROLAT/WATER TOPICAL CREAM 113 GM JAR TP SCH (11:05)
[2022-03-06] MEDS: LIDOCAINE 5% TOPICAL PATCH TP SCH (11:05)
[2022-03-06] MEDS: METHYL SALICYLATE/MENTHOL OINT 30 GM TUBE TP SCH ×2 (11:05→21:57)
[2022-03-06] MEDS: NICOTINE 14 MG/24 HOURS TOPICAL PATCH TD SCH (11:06)
[2022-03-06] MEDS: PRENATAL VITAMINS W/ FOLIC ACID TABLET (FP) PO SCH (11:06)
[2022-03-06] MEDS: THIAMINE HCL 100 MG TABLET (FP) PO SCH (21:19)
[2022-03-06] MEDS: SUVOREXANT 10 MG TABLET PO PRN (21:19)
[2022-03-06] MEDS: LIDOCAINE PATCH REMOVAL MC SCH (21:57)
[2022-03-07] MEDS: busPIRone HCL 10 MG TABLET (FP) PO SCH ×3 (06:27→21:18)
[2022-03-07] MEDS: BUPRENORPHINE/NALOXONE 8 MG/2 MG FILM PACKET SL SCH ×2 (06:28→17:02)
[2022-03-07] MEDS: hydrOXYzine PAMOATE 25 MG CAPSULE (FP) PO PRN ×3 (06:28→21:18)
[2022-03-07] MEDS: METHYL SALICYLATE/MENTHOL OINT 30 GM TUBE TP SCH ×2 (10:23→21:18)
[2022-03-07] MEDS: LIDOCAINE 5% TOPICAL PATCH TP SCH (10:23)
[2022-03-07] MEDS: MINERAL OIL/PETROLAT/WATER TOPICAL CREAM 113 GM JAR TP SCH (10:23)
[2022-03-07] MEDS: PRENATAL VITAMINS W/ FOLIC ACID TABLET (FP) PO SCH (10:23)
[2022-03-07] MEDS: NICOTINE 14 MG/24 HOURS TOPICAL PATCH TD SCH (10:23)
[2022-03-07] MEDS: NICOTINE POLACRILEX 2 MG GUM BUC PRN ×2 (13:58→17:04)
[2022-03-07] MEDS: NICOTINE 10 MG CARTRIDGE (INHALER) IH PRN ×2 (17:04→21:19)
[2022-03-07] MEDS: THIAMINE HCL 100 MG TABLET (FP) PO SCH (21:17)
[2022-03-07] MEDS: SUVOREXANT 10 MG TABLET PO PRN (21:18)
[2022-03-07] MEDS: LIDOCAINE PATCH REMOVAL MC SCH (21:18)
[2022-03-08] MEDS: BUPRENORPHINE/NALOXONE 8 MG/2 MG FILM PACKET SL SCH (06:16)
[2022-03-08] MEDS: busPIRone HCL 10 MG TABLET (FP) PO SCH (06:17)
[2022-03-08] MEDS: hydrOXYzine PAMOATE 25 MG CAPSULE (FP) PO PRN (06:17)
[2022-03-08 07:19] VITALS: BP 112/76; PULSE 69; TEMP 97.7
== END 2022-03-08 08:57 | disposition home or self-care (01) | DRG 772 ==
LOC: YASAS 13:28 → Y3E 13:29
PROVIDERS: ADMIT Allergy & Immunology; ATTEND Allergy & Immunology
PROC: HZ42ZZZ Group Counseling for Substance Abuse Treatment, Cognitive-Behavioral (ICD-10-PCS; principal; 2022-02-08)
DX: F11.20 Opioid dependence, uncomplicated (principal); F12.20 Cannabis dependence, uncomplicated; F17.210 Nicotine dependence, cigarettes, uncomplicated; F19.280 Other psychoactive substance dependence with psychoactive substance-induced anxiety disorder; F19.282 Other psychoactive substance dependence with psychoactive substance-induced sleep disorder; M54.9 Dorsalgia, unspecified
CPT/HCPCS: C9803-CS; U0003; U0005

== ENCOUNTER 2022-10-11 16:05 | Emergency (ER) | payer OTHER ==
[2022-10-11 16:42] VITALS: BP 112/72; PULSE 96; RESP 18; TEMP 98.9; BMI 30.1
[2022-10-11] MEDS ORDERED: DEXAMETHASONE SOD PHOSPHATE 10 MG/1 ML VIAL PO ONE (17:08)
[2022-10-11] MEDS ORDERED: DEXAMETHASONE SOD PHOSPHATE 10 MG/1 ML VIAL ONE (17:33)
[2022-10-11 19:22] LABS: THROAT:GRP A STREP NOT DETECTED (NOTDETECTED)
== END 2022-10-11 18:37 | disposition home or self-care (01) ==
LOC: JER 16:05
DX: J11.1 Influenza due to unidentified influenza virus with other respiratory manifestations (principal)
CPT/HCPCS: 0241U-QW; 87651; 99283-25; J1100

== ENCOUNTER 2023-04-07 21:49 | Emergency (ER) | payer OTHER ==
[2023-04-07 21:56] VITALS: BP 123/77; PULSE 90; RESP 18; TEMP 98.3; BMI 27.9
[2023-04-07] MEDS ORDERED: BUPRENORPHINE/NALOXONE 8 MG/2 MG FILM PACKET SL ONE (22:30)
[2023-04-07] MEDS ORDERED: BUPRENORPHINE/NALOXONE 8 MG/2 MG FILM PACKET ONE (22:40)
== END 2023-04-07 23:02 | disposition home or self-care (01) ==
LOC: JERFT 21:49
DX: R10.9 Unspecified abdominal pain (principal); Z76.0 Encounter for issue of repeat prescription; F11.20 Opioid dependence, uncomplicated
CPT/HCPCS: 99283-25

== ENCOUNTER 2023-04-09 01:03 | Emergency (ER) | payer OTHER ==
[2023-04-09 01:13] VITALS: BP 122/79; PULSE 95; RESP 20; TEMP 98.3; BMI 28.7
[2023-04-09] MEDS ORDERED: DIPHTH,PERTUSS(ACELL),TET 0.5 ML DISP.SYRIN IM ONE ×2 (02:26→02:28)
== END 2023-04-09 03:45 | disposition home or self-care (01) ==
LOC: JER 01:03
PROC: 3E0234Z Introduction of Serum, Toxoid and Vaccine into Muscle, Percutaneous Approach (ICD-10-PCS; principal; 2023-04-09)
DX: S50.811A Abrasion of right forearm, initial encounter (principal); S60.511A Abrasion of right hand, initial encounter; W25.XXXA Contact with sharp glass, initial encounter; Z18.81 Retained glass fragments
CPT/HCPCS: 73090-TC-RT-FY; 73130-TC-RT-FY; 90715; 99284-25

== ENCOUNTER 2023-05-15 20:36 | Emergency (ER) | payer OTHER ==
[2023-05-15 20:49] VITALS: TEMP 98.8; BMI 27.3
[2023-05-15] MEDS ORDERED: BUPRENORPHINE/NALOXONE 8 MG/2 MG FILM PACKET SL ONE (22:30)
[2023-05-15] MEDS ORDERED: BUPRENORPHINE/NALOXONE 8 MG/2 MG FILM PACKET ONE (22:38)
[2023-05-15 23:14] VITALS: BP 107/78; PULSE 85; RESP 16
== END 2023-05-15 23:23 | disposition home or self-care (01) ==
LOC: JERFT 20:36
DX: F11.20 Opioid dependence, uncomplicated (principal); Z76.0 Encounter for issue of repeat prescription
CPT/HCPCS: 99282-25

== ENCOUNTER 2023-07-16 15:53 | Emergency (ER) | payer OTHER ==
[2023-07-16 16:07] VITALS: BP 104/66; PULSE 81; RESP 18; TEMP 98.4; BMI 27.9
== END 2023-07-16 18:18 | disposition home or self-care (01) ==
LOC: JERFT 15:53
DX: Z76.0 Encounter for issue of repeat prescription (principal)
CPT/HCPCS: 99282-25

== ENCOUNTER 2024-06-16 09:45 | Emergency (ER) | payer OTHER ==
[2024-06-16 09:53] VITALS: BP 131/86; PULSE 86; RESP 18; TEMP 98.2; BMI 28.7
== END 2024-06-16 11:10 | disposition home or self-care (01) ==
LOC: JERFT 09:45
DX: Z76.0 Encounter for issue of repeat prescription (principal)
CPT/HCPCS: 99283-25

== ENCOUNTER 2024-09-24 20:30 | Emergency (ER) | payer OTHER ==
[2024-09-24 20:37] VITALS: BP 125/86; TEMP 98; BMI 27.9
[2024-09-24] MEDS ORDERED: BUPRENORPHINE/NALOXONE 8 MG/2 MG FILM PACKET ONE ×2 (21:28→21:33)
[2024-09-24 21:35] VITALS: PULSE 78; RESP 18
[2024-09-24] MEDS: BUPRENORPHINE/NALOXONE 8 MG/2 MG FILM PACKET SL ONE (21:35)
== END 2024-09-24 22:10 | disposition home or self-care (01) ==
LOC: JER 20:30
DX: F41.9 Anxiety disorder, unspecified (principal); R11.0 Nausea; R53.83 Other fatigue; Z76.0 Encounter for issue of repeat prescription
CPT/HCPCS: 93005; 93010; 99283-25